=== PATIENT | male | born 1955 | race Caucasian/White ===

== ENCOUNTER 2017-08-23 10:13 | Emergency (ER) | payer BC ==
[~2017-08-23] VITALS: Ht 180.3 cm; Wt 111.0 kg
[~2017-08-23 10:13] MED LIST: ASPI81TA28 PO; CARV25TA2 PO; LISI20TA55 PO; METF-383 PO; PRAV20TA PO
[2017-08-23 10:23] VITALS: Ht 180.3 cm; Wt 111.0 kg
[2017-08-23 10:58] VITALS: O2SAT 94
[2017-08-23 11:00] LABS: HEMATOCRIT 46.3 % (42-52); HEMOGLOBIN 16.6 g/dL (14.0-18.0); MEAN CELL VOLUME 86.1 fL (80-100); MEAN CORPUSCULAR HEMOGLOBIN 30.9 pg (25-34); MEAN CORPUSCULAR HGB CONC 35.9 g/dl (32-36); MEAN PLATELET VOLUME 9.2 fL (7.4-10.4); PLATELET COUNT 201 K/uL (130-400); RED CELL DISTRIBUTION WIDTH SD 40.7 fL (36.4-46.3); WHITE BLOOD COUNT 8.93 K/uL (4.8-10.8)
[2017-08-23 11:14] LABS: PTT PATIENT 25.4 SECONDS (21.0-31.0)
[2017-08-23 11:19] LABS: ALBUMIN 3.7 gm/dl (3.4-5.0); CREATININE 1.33 mg/dl (0.60-1.40); POTASSIUM 3.9 mmol/L (3.5-5.1)
[2017-08-23 11:21] LABS: TOTAL PROTEIN 7.8 gm/dl (6.4-8.2)
--- NOTE | 2017-08-23 11:26 | DIAGNOSTIC IMAGING REPORT ---
CHEST ONE VIEW PORTABLE CLINICAL HISTORY: Atrial fibrillation. COMPARISON STUDY: No previous studies for comparison. FINDINGS: Lung volumes are mildly diminished. No pneumothorax or pleural effusion is noted. There is no consolidation or evidence for pulmonary edema. There is mild to moderate cardiomegaly. IMPRESSION: 1. No acute cardiopulmonary findings. 2. Mild to moderate cardiomegaly. Electronically signed by: Slade Walsh M.D. 08/23/2017 11:24 AM Dictated Date/Time: 08/23/2017 11:23 AM
[2017-08-23 11:28] LABS: CKMB 1.7 ng/ml (0.5-3.6)
[2017-08-23] MEDS ORDERED: AMLO2.5T PO (12:00)
[2017-08-23 12:14] LABS: PHOSPHORUS 2.7 mg/dl (2.5-4.9)
[2017-08-23] MEDS ORDERED: APIXABAN 2.5 MG TAB PO STA (13:13)
--- NOTE | 2017-08-23 13:14 | Pharmacy Progress Note ---
ED Pharmacist Progress Note Date of Service: Aug 23, 2017. I spent 15 minutes with the patient explaining apixaban. Adverse effects, drug interactions, and other pertinent drug information were reviewed with the patient. All of the patient's questions and concerns were address.
[2017-08-23] MEDS ORDERED: APIX1TAB3 PO (13:20)
--- NOTE | 2017-08-23 13:21 | EMERGENCY ROOM VISIT NOTE ---
History Report prepared by Celine: Dmitri Soriano Under the Supervision of: Dr. Darrius Kang M.D. First contact with patient: 10:55 Chief Complaint: ABNORMAL DIAGNOSTIC TESTING Stated Complaint: A-FIB History of Present Illness The patient is a 61 year old white male with a past medical history of diabetes and HTN who presents to the ED with a cc of constant irregular heart rhythm. Patient was seen today for a left knee replacement, and was found to have an irregular heart rhythm on the monitor. He has no known history of irregular heart rhythms. Positive constant fatigue (x2 weeks). Negative: nausea, vomiting , leg swelling, chest pain, or SOB. Source of History: patient Onset: Today Quality: other (irregular heart rhythm) Timing: constant Associated Symptoms: + fatigue (x2 weeks), No chest pain, No SOB, No nausea , No vomiting Note: Negative: leg swelling. Review of Systems See HPI for pertinent positives and negatives. A total of ten systems were reviewed and were otherwise negative. Past Medical & Surgical Medical Problems: (1) Diabetes (2) HTN (hypertension) Family History No pertinent family history stated. Social History Smoking Status: Never Smoker Current/Historical Medications Scheduled Amlodipine (Norvasc), 2.5 MG PO QAM Apixaban (Eliquis), 5 MG PO BID Aspirin (Aspirin Ec), 81 MG PO QAM Carvedilol (Coreg), 1 TAB PO BID Lisinopril/Hctz (Prinzide 20-25MG), 1 TAB PO QAM Metformin Hcl (Glucophage), 850 MG PO BID Pravastatin (Pravachol ), 40 MG PO QAM Allergies Coded Allergies: No Known Allergies (Unverified , 08/23/17) Physical Exam Vital Signs Date Time Temp Pulse Resp B/P (MAP) Pulse Ox O2 Delivery O2 Flow Rate FiO2 08/23/17 14:12 36.7 67 22 155/99 96 08/23/17 14:10 67 22 155/99 96 Room Air 08/23/17 13:30 67 22 08/23/17 13:00 66 28 08/23/17 12:35 66 21 160/100 96 Room Air 08/23/17 10:58 94 Room Air 08/23/17 10:50 70 21 98 Room Air 08/23/17 10:41 70 08/23/17 10:23 36.7 76 18 196/109 94 Room Air Physical Exam GENERAL: Awake, alert, well-appearing, NAD HENT: Normocephalic, atraumatic. EYES: Normal conjunctiva. Sclera non-icteric. NECK: Supple. No nuchal rigidity. FROM. RESPIRATORY: CTAB, no rhonchi, wheezing, crackles CARDIAC: Irregularly irregular rhythm, normal rate, no MRG ABDOMEN: Obese, distended, soft. NTND, BS+ MSK: No chest wall TTP, no LE edema NEURO: GCS 15, CN 2-12 intact, moves all 4s on command SKIN: No rash or jaundice noted. Medical Decision & Procedures ER Provider Diagnostic Interpretation: Radiology results as stated below per my review and radiologist interpretation: CHEST ONE VIEW PORTABLE FINDINGS: Lung volumes are mildly diminished. No pneumothorax or pleural effusion is noted. There is no consolidation or evidence for pulmonary edema. There is mild to moderate cardiomegaly. IMPRESSION: 1. No acute cardiopulmonary findings. 2. Mild to moderate cardiomegaly. Electronically signed by: Slade Walsh M.D. 08/23/2017 11:24 AM Laboratory Results 08/23/17 10:45 08/23/17 10:45 Test 08/23/17 10:45 Red Blood Count 5.38 M/uL (4.7-6.1) Mean Corpuscular Volume 86.1 fL (80-100) Mean Corpuscular Hemoglobin 30.9 pg (25-34) Mean Corpuscular Hemoglobin Concent 35.9 g/dl (32-36) RDW Standard Deviation 40.7 fL (36.4-46.3) RDW Coefficient of Variation 13.0 % (11.5-14.5) Mean Platelet Volume 9.2 fL (7.4-10.4) Prothrombin Time 10.7 SECONDS (9.0-12.0) Prothromb Time International Ratio 1.0 (0.9-1.1) Activated Partial Thromboplast Time 25.4 SECONDS (21.0-31.0) Partial Thromboplastin Ratio 1.0 Anion Gap 9.0 mmol/L (3-11) Est Creatinine Clear Calc Drug Dose 72.9 ml/min Estimated GFR () 65.9 Estimated GFR (Non- 56.9 BUN/Creatinine Ratio 13.0 (10-20) Calcium Level 9.0 mg/dl (8.5-10.1) Phosphorus Level 2.7 mg/dl (2.5-4.9) Magnesium Level 1.8 mg/dl (1.8-2.4) Total Bilirubin 0.8 mg/dl (0.2-1) Aspartate Amino Transf (AST/SGOT) 39 U/L (15-37) Alanine Aminotransferase (ALT/SGPT) 64 U/L (12-78) Alkaline Phosphatase 55 U/L (45-117) Total Creatine Kinase 170 U/L (39-308) Creatine Kinase MB 1.7 ng/ml (0.5-3.6) Creatine Kinase MB Ratio 1.0 (0-3.0) Troponin I < 0.015 ng/ml (0-0.045) Total Protein 7.8 gm/dl (6.4-8.2) Albumin 3.7 gm/dl (3.4-5.0) Globulin 4.1 gm/dl (2.5-4.0) Albumin/Globulin Ratio 0.9 (0.9-2) Beta-Hydroxybutyric Acid 1.41 mg/dL (0.2-2.81) Thyroid Stimulating Hormone (TSH) 1.360 uIu/ml (0.300-4.500) Laboratory results reviewed by me Medications Administered Medications (Trade) Dose Ordered Sig/Roshan Route Start Time Stop Time Status Last Admin Dose Admin Apixaban (Eliquis Tab) 5 mg ONE STAT PO 08/23/17 13:13 08/23/17 13:14 DC 08/23/17 13:59 5 MG ECG Per My Interpretation Indication: other (Irregular heart rhythm) Rate (beats per minute): 63 Rhythm: atrial fibrillation (vs A-flutter) Findings: other (Normal axis. No overt STS changes or TWI. ) ED Course 1121: The patient was evaluated in room C6. A complete history and physical exam was performed. 1330: I reevaluated the patient. Discussed results and discharge instructions: he verbalized understanding and agreement. The patient is ready for discharge. Medical Decision The patient is a 61 year old white male with a past medical history of diabetes and HTN who presents to the ED with a cc of constant irregular heart rhythm. Nursing notes reviewed. Ancillary studies and prior records reviewed. Differential diagnosis: Etiologies such as premature contractions, electrolyte abnormality, cardiac dysrhythmia, thyroid dysfunction, pulmonary embolism, infection, gastrointestinal, as well as others were entertained. Patient was seen and evaluated the bedside. Patient has complained of some mild fatigue and was in preoperative clearance today and had an EKG which showed A. fib. Patient is otherwise rate controlled. Patient denies any chest pains or shortness of breath. Patient had no lower extremity swelling. Patient had blood work completed, TSH, chest x-ray, and EKG. Patient's EKG does show persistent A. fib versus possible a flutter. The patient does take a baby aspirin. Patient does have a [id number] score of 2. Should be anticoagulated. I discussed the patient with the on-call hospitalist who believes that the patient is suitable for outpatient workup. I did discuss the patient with the ER pharmacist recommended Eliquis 5 mg twice daily. I did discuss with watch case polisher in order to help arrange a follow-up appointment with his PCP for outpatient workup. An appointment was arranged. He was also told he will need to discuss his anticoagulation and when to stop it with his orthopedist depending on when his procedure supposed to occur. Patient again is otherwise fairly asymptomatic otherwise than his mild fatigue. The patient' s troponin is negative and does not show ischemic changes. This is more most likely related to his A. fib. Patient was deemed suitable for outpatient follow -up and treatment at this time. Patient was given strict follow-up, discharge, and return precautions. All questions were answered. Patient was deemed suitable for outpatient follow-up at this time. Patient agreed with the plan of care and was safely discharged home. Medication Reconcilliation Current Medication List: was personally reviewed by me Blood Pressure Screening Patient's blood pressure: Elevated blood pressure Blood pressure disposition: Referred to PCP Consults Time Called: 1237 Consulting Physician: Kate Johnson DO - [facility] [place], [place] Hospitalist Returned Call: [phone] Discussed the patient's case. Kate Johnson DO feels that the patient would be a good candidate for outpatient treatment. The patient's surgeon can decide on whether to continue with surgery or not. Impression Primary Impression: A-fib Additional Impression: Fatigue Scribe Attestation The scribe's documentation has been prepared under my direction and personally reviewed by me in its entirety. I confirm that the note above accurately reflects all work, treatment, procedures, and medical decision making performed by me. Departure Information Dispostion Home / Self-Care Prescriptions Apixaban (ELIQUIS) 5 Mg Tab 5 MG PO BID for 30 Days, #60 TAB Prov: Darrius Kang M.D. 08/23/17 Referrals Saray Leon DO (PCP) Patient Instructions Atrial Fibrillation Dc, My [facility] Additional Instructions Please return to the emergency department if you have worsening or recurrent symptoms not amenable to at-home treatment. Please call for a follow-up appointment with her primary care physician. Please take your medications as prescribed. If you have other concerns and/or complaints please feel free to also call your primary care physician's office or return the ED for further evaluation, management, and treatment. You were found to have an elevated blood pressure today (>120 sytolic or >90 diastolic). Per medicare guidelines, you need to follow up with this blood pressure screening with your Primary Care Physician (PCP). For a new PCP call [phone]. Please keep your follow-up appointment with your primary care physician. Continue her aspirin for now but discussed whether or not you should continue to take it with your primary care provider and/or the orthopedist. Please make sure to talk to her orthopedist about when to start the blood thinning medications prior to your procedure. Take your medications as prescribed. You have been examined and treated today on an emergency basis only. This is not a substitute for, or an effort to provide, complete comprehensive medical care. It is impossible to recognize and treat all injuries or illnesses in a single emergency department visit. It is therefore important that you follow up closely with [facility], your PCP, and/or your specialist(s). Call as soon as possible for an appointment. Thank you for your time and consideration. I look forward to speaking with you again soon. Please don't hesitate to call us if you have any questions. Problem Qualifiers Primary Impression: A-fib Atrial fibrillation type: unspecified Qualified Codes: I48.91 - Unspecified atrial fibrillation Additional Impression: Fatigue Fatigue type: unspecified Qualified Codes: R53.83 - Other fatigue
[2017-08-23 14:12] VITALS: BP 155/99; PULSE 67; TEMP 36.7; O2SAT 96
== END 2017-08-23 14:13 | disposition home or self-care (01) ==
LOC: C.EDB 10:16 → C.EDC 14:13
DX: I48.91 Unspecified atrial fibrillation (principal); R53.83 Other fatigue; E11.9 Type 2 diabetes mellitus without complications; I10 Essential (primary) hypertension; Z79.899 Other long term (current) drug therapy; Z79.82 Long term (current) use of aspirin; Z79.84 Long term (current) use of oral hypoglycemic drugs; Z79.01 Long term (current) use of anticoagulants

== ENCOUNTER 2017-09-16 06:21 | Inpatient (IN) | payer BC ==
[2017-08-23 09:26] VITALS: BMI 34.0
--- NOTE | 2017-08-23 09:50 | PAT Medication Instructions ---
Service Date Aug 23, 2017. Current Home Medication List Aspirin (Aspirin Ec), 81 MG PO QAM Carvedilol (Coreg), 1 TAB PO BID Lisinopril/Hctz (Prinzide 20-25MG), 1 TAB PO QAM Metformin Hcl (Glucophage), 850 MG PO BID Pravastatin (Pravachol ), 40 MG PO QAM Medication Instructions For Your Scheduled Surgery - Hold the following medications the morning of surgery: Lisinopril/Hctz (Prinzide 20-25MG), 1 TAB PO QAM Metformin Hcl (Glucophage), 850 MG PO BID - Take the following medications the morning of surgery with a sip of water: Aspirin (Aspirin Ec), 81 MG PO QAM Carvedilol (Coreg), 1 TAB PO BID Pravastatin (Pravachol ), 40 MG PO QAM - Take the following medications as scheduled the night before surgery: Carvedilol (Coreg), 1 TAB PO BID Metformin Hcl (Glucophage), 850 MG PO BID If you have any questions please call us at [phone] or [phone] or [phone]
[2017-08-23 11:04] LABS: BASO % 0.3 %; BASO ABS # 0.03 K/uL (0-0.2); EOS % 2.6 %; EOS ABS # 0.25 K/uL (0-0.5); HEMATOCRIT 44.9 % (42-52); HEMOGLOBIN 15.7 g/dL (14.0-18.0); IG# 0.08 K/uL (0.00-0.02); LYMPH % 20.4 %; LYMPH ABS # 1.93 K/uL (1.2-3.4); MEAN CELL VOLUME 86.8 fL (80-100); MEAN CORPUSCULAR HEMOGLOBIN 30.4 pg (25-34); MEAN PLATELET VOLUME 9.2 fL (7.4-10.4); MONO % 5.6 %; MONO ABS # 0.53 K/uL (0.11-0.59); NEUT % 70.3 %; NEUT ABS # 6.62 K/uL (1.4-6.5); PLATELET COUNT 213 K/uL (130-400); RED CELL DISTRIBUTION WIDTH CV 13.1 % (11.5-14.5); RED CELL DISTRIBUTION WIDTH SD 41.8 fL (36.4-46.3); WHITE BLOOD COUNT 9.44 K/uL (4.8-10.8)
[2017-08-23 11:21] LABS: PTT PATIENT 24.8 SECONDS (21.0-31.0)
[2017-08-23 12:37] LABS: HEMOGLOBIN A1C 8.6 % (4.5-5.6)
--- NOTE | 2017-09-10 09:20 | HISTORY & PHYSICAL EXAMINATION ---
DATE OF ADMISSION: 09/16/2017 CHIEF COMPLAINT: Left knee pain. HISTORY OF PRESENT ILLNESS: This is a 61-year-old gentleman who presents for surgical treatment of his left knee. He has a several year history of increasing left knee pain and discomfort. He does have a history of knee arthroscopy on his knee back in 2009 done by myself. He has had about 2 or 3 other operations on this previous to that. It continues to bother with progressive pain and discomfort in his knee. It increases with weightbearing. Pain is more medial than lateral. The injections that he has had gave him some temporary relief, but become less successful over time. He would like to have his knee fixed. PAST MEDICAL HISTORY: Past medical history of 1. Diabetes x13 years. 2. Elevated cholesterol. 3. Hypertension. 4. Atrial fibrillation. 5. Mild obesity, BMI 34. PAST SURGICAL HISTORY: Previous surgeries include: 1. Multiple left knee operations. 2. Right knee arthroscopy. ALLERGIES: None. CURRENT MEDICINES: 1. Pravastatin 40 mg a day. 2. Carvedilol 25 mg twice a day. 3. Metformin 850 mg twice a day. 4. Lisinopril/hydrochlorothiazide 20/25 once a day. 5. Aspirin 81 mg a day. SOCIAL HISTORY: A 61-year-old male. He drinks 2 drinks per day. Does not smoke. He is self-employed and owns some rental houses. He is . FAMILY HISTORY: Significant for diabetes. REVIEW OF SYSTEMS: Significant for diabetes. Denies any chest pain or shortness of breath. No history of DVT or PE. PHYSICAL EXAMINATION: GENERAL: Physical examination reveals a healthy, pleasant middle-aged male. He looks to be in pretty good health. HEENT EXAMINATION: Benign. NECK: Supple. No lymphadenopathy. LUNGS: Clear to auscultation. HEART: Heart has an irregularly irregular rhythm. No obvious murmurs. ABDOMEN: Soft, nontender, nondistended. EXTREMITY EXAMINATION: Grossly neurovascularly intact except as follows: Examination of the left knee reveals the patient ambulates independently. He has got varus alignment to his knee. Well-healed arthroscopic portal sites. Small knee effusion. He has got bony hypertrophy medially. Range of motion is 5-125. No instability. X-RAYS: X-rays of the left knee reviewed. Shows advanced left knee DJD. He has got complete loss of his medial joint space on the 40 degree flexion films. A little bit of tibial femoral subluxation. ASSESSMENT: This is a 61-year-old male diabetic with a history of multiple left knee scopes in the past with advanced left knee degenerative joint disease. He has failed conservative treatment and would like to have his left knee replaced. PLAN: We will take him to the operating room and do a left total knee replacement. The risks and benefits of this procedure were explained to the patient including but not limited to DVT, PE, , infection, neurological injury, vascular injury, bleeding problem, pain, limited range of motion, stiffness, failure to relieve symptoms, incomplete relief of symptoms, need for further surgery in future, fracture, leg length inequality, nerve palsy, etc. The patient understands and desires to proceed. Informed consent was obtained. He is planning to be discharged to home using [facility] home health program. We did talk to him about holding his metformin the morning of surgery and the lisinopril the morning of surgery. He should take his carvedilol. CHARLES
[~2017-09-16] VITALS: Ht 180.3 cm; Wt 111.0 kg
[2017-09-16] VITALS (11 sets, daily range): BP systolic 119–182; BP diastolic 72–139; PULSE 65–80; TEMP 36.4–37.3; O2SAT 91–97; Ht 180.3 cm; Wt 111.0 kg
[~2017-09-16 06:21] MED LIST changes: +ACETAMINOPHEN 500 MG TAB PO SCH; +AMLO2.5T PO; +APIX1TAB3 PO; +BUPIVACAINE LIPOSOME 266 MG, BUPIVACAINE/EPINEPHRINE INJ 50 ML, SODIUM CHLORIDE 0.9% PF... INFIL SCH; +CEFAZOLIN 2000MG IV PUSH 15 ML IV SCH; +FAMOTIDINE 20 MG TAB PO SCH; +GABAPENTIN 600 MG PO SCH; +LACTATED RINGER'S 1000ML 1,000 ML IV SCH; +LACTATED RINGER'S 1000ML 500 ML IV SCH; +LACTATED RINGER'S 1000ML IV SCH; +METOCLOPRAMIDE HCL 10 MG TAB PO SCH; +SCOPOLAMINE 1.5 MG TDSY TD SCH; +TRANEXAMIC ACID INJ 1,000 MG x 1 Bag Intra-Op IV SCH
--- NOTE | 2017-09-16 06:49 | History & Physical Bridge Note ---
H&P Re-Evaluation Bridge Note: I have examined the patient, reviewed the History & Physical and in the interval since the performance of the History & Physical I have noted the following changes of clinical significance: No changes noted
[2017-09-16] MEDS ORDERED: APIX1TAB3 PO (06:51)
[2017-09-16] MEDS ORDERED: BUPIVACAINE 0.5 % 5 MG/1 ML PF 10ML VIAL ONE (07:32)
[2017-09-16] MEDS ORDERED: ROPIVACAINE 0.5% 5 MG/ML 30 ML VIAL ONE (07:32)
[2017-09-16] MEDS ORDERED: MIDAZOLAM HCL 1 MG/ML 2ML VIAL ONE ×2 (07:49→08:46)
[2017-09-16] MEDS ORDERED: BUPIVACAINE LIPOSOME 1/3% 266 MG/20 ML VIAL ONE (08:55)
[2017-09-16] MEDS ORDERED: SODIUM CHLORIDE 0.9% PF 50 ML VIAL ONE (08:55)
[2017-09-16] MEDS ORDERED: BACITRACIN 50000 UNIT VIAL ONE (08:55)
[2017-09-16] MEDS ORDERED: BUPIVACAINE 0.25% 30 ML VIAL ONE (08:56)
[2017-09-16] MEDS ORDERED: EpINEphrine INJ 1MG/ML AMP 1 MG/ML AMP ONE (08:56)
[2017-09-16] MEDS ORDERED: PHENYLEPHRINE 100MCG/ML 5ML SYR ONE (09:37)
[2017-09-16] MEDS ORDERED: ONDANSETRON INJ 2 MG/ML 2 ML VIAL ONE (09:37)
[2017-09-16] MEDS ORDERED: DEXAMETHASONE SOD INJ 4 MG/ML VIAL ONE (09:37)
[2017-09-16] MEDS ORDERED: PROPOFOL IV EMULSION 10 MG/ML 20 ML VIAL ONE (09:37)
[2017-09-16] MEDS ORDERED: EpHEDrine SULFATE INJ 50 MG/ML AMP IV PRN (09:45)
[2017-09-16] MEDS ORDERED: ATROPINE SULFATE 0.1 MG/ML 5ML SYR IV PRN (09:45)
[2017-09-16] MEDS ORDERED: TAMSULOSIN HCL 0.4 MG CAP PO PRN (11:15)
[2017-09-16] MEDS ORDERED: GLUCOSE 10 TABS/TUBE PO PRN (11:15)
[2017-09-16] MEDS ORDERED: SILVER SULFADIAZINE 1% CR 50 GM JAR EXT PRN (11:15)
[2017-09-16] MEDS ORDERED: ONDANSETRON INJ 2 MG/ML 2 ML VIAL IV PRN (11:15)
[2017-09-16] MEDS ORDERED: DiphenhydrAMINE HCL 50 MG/ML VIAL IV PRN (11:15)
[2017-09-16] MEDS ORDERED: MAGNESIUM HYDROXIDE SUSP 30 ML UDC PO PRN (11:15)
[2017-09-16] MEDS ORDERED: GLUCAGON FOR INJ 1 MG VIAL SQ PRN (11:15)
[2017-09-16] MEDS ORDERED: ZOLPIDEM TARTRATE 5 MG TAB PO PRN (11:15)
[2017-09-16] MEDS ORDERED: ALUMINUM/MAGNESIUM/SIMETH (MAALOX MAX) 30 ML UDC PO PRN (11:15)
[2017-09-16] MEDS ORDERED: CARBOHYDRATES FOR HYPOGLYCEMIA PO PRN (11:15)
[2017-09-16] MEDS ORDERED: METOCLOPRAMIDE HCL INJ 5 MG/ML 2 ML VIAL IV PRN (11:15)
[2017-09-16] MEDS ORDERED: DEXTROSE 50% 50 ML SYR IV PRN (11:15)
[2017-09-16] MEDS ORDERED: GLUCOSE 40% GEL 15 GM TUBE PO PRN (11:15)
[2017-09-16] MEDS ORDERED: BISACODYL 10 MG SUPP PR PRN (11:15)
[2017-09-16] MEDS ORDERED: HYDROmorphone INJ 2 MG/ML SYR/VIAL IV PRN (11:15)
--- NOTE | 2017-09-16 11:15 | [facility] Post Operative Brief Note ---
Immediate Operative Summary Operative Date September 16, 2017. Pre-Operative Diagnosis Left Knee Advanced Degenerative Joint Disease Post-Operative Diagnosis Left Knee Advanced Degenerative Joint Disease Procedure(s) Performed Left Total Knee Arthroplasty Surgeon Dr. Johnson Erecting Engineer Surgeon(s) ASYA Chahal Estimated Blood Loss 50 ml Findings Consistent with Post-Op Diagnosis Fluids (cc crystalloids) 1300 cc Specimens A. Left Knee Bone and Tissue Drains None Anesthesia Type MAC Spinal Regional Complication(s) none Disposition Accompanied Pt To Recover: no Disposition: Recovery Room / PACU
--- NOTE | 2017-09-16 11:51 | DIAGNOSTIC IMAGING REPORT ---
TWO VIEWS LEFT KNEE CLINICAL HISTORY: Postoperative examination. FINDINGS: AP and crosstable lateral portable views of the left knee are obtained. A left knee arthroplasty is in near anatomic alignment. There has been undersurface remodeling of the patella. No acute fracture is seen. There are expected postoperative changes around the knee including skin clips, soft tissue edema, and subcutaneous gas. A calcified fabella is incidentally noted. IMPRESSION: Expected postoperative changes status post left knee arthroplasty. No acute fracture is seen. Electronically signed by: Bon Laureano M.D. 09/16/2017 11:49 AM Dictated Date/Time: 09/16/2017 11:49 AM
--- NOTE | 2017-09-16 12:13 | Anesthesiology Progress Note ---
Anesthesia Post Op Note Date & Time September 16, 2017 at 12:13 Vital Signs Pain Intensity: 0 Vital Signs Past 12 Hours Date Time Temp Pulse Resp B/P (MAP) Pulse Ox O2 Delivery O2 Flow Rate FiO2 09/16/17 12:00 70 23 116/81 95 Nasal Cannula 2 09/16/17 11:50 36.2 58 14 101/76 95 Nasal Cannula 2 09/16/17 11:40 68 25 106/69 96 Nasal Cannula 2 09/16/17 11:30 58 20 111/62 96 Nasal Cannula 2 09/16/17 11:21 36.3 69 16 112/76 99 Oxymask 10 09/16/17 07:28 147/106 09/16/17 07:07 36.5 75 20 96 Room Air Notes Mental Status: alert / awake / arousable, participated in evaluation Pt Amnestic to Procedure: Yes Nausea / Vomiting: adequately controlled Pain: adequately controlled Airway Patency, RR, SpO2: stable & adequate BP & HR: stable & adequate Hydration State: stable & adequate Neuraxial Anesthesia: was administered, sensory block is resolving Anesthetic Complications: no major complications apparent
[2017-09-16] MEDS: SODIUM CHLORIDE 0.9% 1000ML 1,000 ML IV SCH ×2 (13:10→19:16)
--- NOTE | 2017-09-16 14:12 | OPERATIVE REPORT ---
DATE OF OPERATION: 09/16/2017 SURGEON: Nam Johnson M.D. DIRECTOR TRANSLATION: ASYA Acosta PREOPERATIVE DIAGNOSIS: Left knee degenerative joint disease. POSTOPERATIVE DIAGNOSIS: Left knee degenerative joint disease. PROCEDURE PERFORMED: Left cemented posterior stabilized total knee arthroplasty. COMPLICATIONS: None. ESTIMATED BLOOD LOSS: 50 mL FLUID REPLACEMENT: 1300 mL crystalloid fluid replacement. TOURNIQUET TIME: 72 minutes at 300 mmHg. ANESTHESIA: Spinal with adductor canal block. DRAINS: None. SPECIMENS: Left knee sent for pathology. OPERATIVE INDICATIONS: The patient is a 61-year-old gentleman who has had a fairly long history of bilateral knee pain and discomfort, left side quite a bit worse than the right. He has had a history of multiple operations on this knee, which provided him temporary relief only. Has not had anything done recently. He has failed conservative treatment. X-rays showed advanced left knee DJD. He elected to proceed with operative treatment. OPERATIVE FINDINGS: Operative findings were advanced left knee DJD with grade 4 [id number] disease in the medial femoral condyle and medial tibial plateau. He has certainly much less severe disease of the lateral compartment, but did have some areas where he was Grade 2 to grade 3. The patellofemoral joint showed diffuse grade 2 and 3 changes. He had a moderate-sized joint effusion. He did have about a 10-15 degree flexion contracture. OPERATIVE IMPLANTS: Operative implants consisted of: 1. Biomet Vanguard size 67.5 left posterior stabilized femoral component. 2. Biomet size 71 tibial tray. 3. A 10 mm posterior stabilized polyethylene insert. 4. A 31 x 8 all poly patella. OPERATIVE PROCEDURE: The patient taken to the operating room, identified and placed on operative table in supine position. All contact areas were appropriately padded. IV antibiotics provided by anesthesia team. A spinal anesthetic and adductor canal block had been provided in the holding area. Koo catheter was placed in sterile fashion. Left thigh tourniquet was then placed and left lower extremity was then prepped and draped in usual sterile fashion. His left leg was elevated, exsanguinated with Esmarch, and tourniquet was placed at 300 mmHg. An anterior approach to the left knee was then performed through a longitudinal incision centered over the patella. Sharp dissection was carried out through the subcutaneous tissues down to the level of the extensor mechanism. A medial parapatellar arthrotomy incision was made. Some subperiosteal dissection was carried out medially. The fat pad resected from beneath the patellar tendon. Lateral patellofemoral ligament was released. Patella was everted and the knee was flexed. The osteophytes were taken off distal femur. The ACL and PCL were then released from the distal femur and the tibia subluxated anteriorly. The external tibial alignment jig was then placed in the anterior face of the tibia and adjusted 16 mm medially. Proximal tibial cut was made to remove about a millimeter of bone from the very most deficient aspect of the posteromedial tibial plateau. Some osteophytes were taken off medial and posteromedially. Tibia sized to a size 71. Attention was then drawn to the femur. The distal femur was entered with a sharp drill bit. Intramedullary canal was suctioned. A left 6-degree valgus cutting guide was placed. Distal femoral cutting block was pinned in place. Distal femoral cut was made to take an additional 3 mm of bone off the distal femur. The femur was then sized to a size 67.5. We did downsize this just slightly. The AP cutting block was pinned parallel to the epicondylar axis, which was 3 degrees of external rotation. The anterior cut, anterior chamfer, posterior cut, posterior chamfer cuts were made. Box cutting guide was placed and adjusted slightly lateral and the box cut was made. The knee was flexed. The remnants of the medial and lateral menisci were excised. The osteophytes were taken off the posterior aspect of the femur. Trial femoral component was placed. Tibial tray was pinned in maximum external rotation and drill and stem punch were used to create defect in proximal tibia for the tibial tray. The knee was then trialed. It was still a little bit tight in both flexion and extension, so I removed the tibial tray. I replaced the external alignment jig on the anterior face of the tibia and adjusted and resected about 2-3 mm of additional bone. I then redrilled and punched the tibia. We then trialed the knee and the 10 mm insert fit most appropriately. I really wanted to make sure I did not leave him too tight as he had a flexion contracture preoperatively. Attention was then drawn to the patella. The patella was cleaned of all soft tissues. Patella thickness measured 25 mm in thickness and cut down to 14. It was sized to a size 31 patella. Lug holes were drilled for the 31 patella. Lateral osteophyte was removed. Patella button was placed. Knee was taken through range of motion and the patella tracked nicely with no thumbs test. Attention was then drawn toward placement of the permanent components. All trial components were removed. A bone plug was placed in the distal femur to limit blood loss. A double batch of Palacos G cement was mixed. A left size 67.5 posterior stabilized femoral component, size 71 tibial tray, 10 mm posterior stabilized polyethylene insert, and a 31 x 8 all poly patella then cemented in place. Knee was brought out into full extension until cement hardened. A final cement check was then performed. Pericapsular tissues were injected, a total of 100 mL of a combination of 20 mL of Exparel, 30 mL normal saline, 50 mL of 0.25% Marcaine with epinephrine. The patient did receive 1 gram of tranexamic acid. The tourniquet was then let down for final tourniquet time of 72 minutes. Hemostasis was assured with use of electrocautery. The wound was once again irrigated. The extensor mechanism was then closed with combination of #1 PDS suture and #1 Vicryl suture in a [id number] fashion. Extensor mechanism was checked and found to be intact. Subcutaneous tissues were then closed #2 Dexon suture in a buried interrupted fashion. Skin was closed with skin anna. Leg was then cleaned, dried and a sterile dressing of Xeroform, 4 x 4's, sterile cast padding and Ty bandage were applied. The patient then transferred to the recovery room in stable condition. The patient tolerated the procedure well with no complication. All needle and sponge counts were correct at the end of the operation. I attest to the content of the Intraoperative Record and any orders documented therein. Any exceptions are noted below. MTDD
[2017-09-16] MEDS: AMLODIPINE BESYLATE 5 MG TAB PO SCH (14:20)
[2017-09-16] MEDS: LISINOPRIL/HCTZ 20/25MG TAB PO SCH (14:21)
[2017-09-16] MEDS: ACETAMINOPHEN 500 MG TAB PO SCH ×2 (14:22→21:38)
[2017-09-16] MEDS: KETOROLAC TROMETHAMINE 15 MG/ML VIAL IV. SCH ×2 (14:22→20:32)
--- NOTE | 2017-09-16 14:35 | PROGRESS NOTE ---
DATE: 09/16/2017 SUBJECTIVE: A 61-year-old gentleman postop from a left knee replacement. He is doing pretty well. Not having any pain yet. Just starting to get the function back in his leg. No chest pain or shortness of breath. Not feeling dizzy or lightheaded. OBJECTIVE: VITAL SIGNS: Temperature is 36.3. Vital signs stable. He has been hypertensive since being up on the floor. GENERAL: He is a healthy, pleasant, middle-aged male. He is sitting up in bed and looks quite comfortable. He is talking to his family. LUNGS: Clear to auscultation. HEART: Has an irregularly irregular rhythm, but a normal rate. ABDOMEN: Soft, nontender, nondistended. EXTREMITIES: Grossly neurovascularly intact except as follows: Examination of the left lower extremity reveals the dressing to be clean, dry and intact. Leg is well aligned. He is just starting to move his toes a little bit. Brisk refill. X-RAYS: X-rays of left knee from recovery room reviewed. Shows cemented posterior stabilized total knee arthroplasty. Components looked to be in good position. No signs of problems. ASSESSMENT: A 61-year-old male postop from a left knee replacement, doing pretty well. He is not really having any pain yet, but the spinal has worn off yet. His nerve function is just returning. He has been hypertensive and will restart his blood pressure medicine. PLAN: 1. DVT prophylaxis include thigh-high TEDs, SCDs and we will start him back on his Eliquis at a prophylactic dose 24 hours postop and then increase to therapeutic dose probably 2-3 days postop. 2. PT/OT. Weight bear as tolerated. Left total knee protocol. 3. Pain control, doing well with current pain regimen. 4. IV antibiotics x24 hours. 5. Hypertension. We are going to start him back on his blood pressure medicine. 6. Disposition: He will be discharged to home likely with some home health once adequately recovered.
[2017-09-16] MEDS: CHECK SCOPOLAMINE PATCH PLACEMENT SCH ×2 (16:06→23:46)
[2017-09-16] MEDS: INSULIN HUMAN REGULAR SC SCH ×2 (17:57→21:36)
[2017-09-16] MEDS ORDERED: TRANEXAMIC ACID INJ 1,000 MG in SODIUM CHLORIDE 0.9% 100ML 100 ML IV SCH (18:00)
[2017-09-16] MEDS: FERROUS GLUCONATE 324 MG TAB PO SCH (18:03)
[2017-09-16] MEDS: CEFAZOLIN IV 2,000 MG in SYRINGE 0 ML IV SCH (18:06)
[2017-09-16] MEDS: TAPENTADOL ER 50 MG TABCR PO SCH (20:32)
[2017-09-16] MEDS: SENNA 8.6 MG TAB PO SCH (20:33)
[2017-09-16] MEDS: CARVEDILOL 25 MG TAB PO SCH (20:33)
[2017-09-16] MEDS: DOCUSATE SODIUM 100 MG CAP PO SCH (20:33)
[2017-09-16] MEDS ORDERED: NURSING VERBAL MED ORDER ONE (20:45)
[2017-09-16] MEDS: PRAVASTATIN SOD 20 MG TAB PO SCH (21:40)
[2017-09-17] MEDS: CEFAZOLIN IV 2,000 MG in SYRINGE 0 ML IV SCH (02:02)
[2017-09-17] MEDS: SODIUM CHLORIDE 0.9% 1000ML 1,000 ML IV SCH ×2 (02:02→09:44)
[2017-09-17] MEDS: KETOROLAC TROMETHAMINE 15 MG/ML VIAL IV. SCH ×2 (02:02→08:23)
[2017-09-17 03:44] VITALS: BP 111/63; PULSE 62; TEMP 36.6; O2SAT 91
[2017-09-17] MEDS: ACETAMINOPHEN 500 MG TAB PO SCH ×3 (05:51→21:19)
[2017-09-17 06:29] LABS: HEMATOCRIT 38.9 % (42-52); HEMOGLOBIN 13.6 g/dL (14.0-18.0); MEAN CELL VOLUME 86.4 fL (80-100); MEAN CORPUSCULAR HEMOGLOBIN 30.2 pg (25-34); MEAN PLATELET VOLUME 8.8 fL (7.4-10.4); PLATELET COUNT 211 K/uL (130-400); RED CELL DISTRIBUTION WIDTH CV 12.8 % (11.5-14.5); RED CELL DISTRIBUTION WIDTH SD 40.3 fL (36.4-46.3); WHITE BLOOD COUNT 14.99 K/uL (4.8-10.8)
[2017-09-17 07:04] LABS: CALCIUM 7.7 mg/dl (8.5-10.1); CREATININE 1.28 mg/dl (0.60-1.40); POTASSIUM 3.6 mmol/L (3.5-5.1)
[2017-09-17 07:14] VITALS: BP 135/79; PULSE 62; TEMP 36.7; O2SAT 90
[2017-09-17] MEDS: CHECK SCOPOLAMINE PATCH PLACEMENT SCH ×3 (08:00→23:36)
--- NOTE | 2017-09-17 08:00 | PROGRESS NOTE ---
DATE: 09/17/2017 SUBJECTIVE: A 61-year-old gentleman postop day 1 from a left knee replacement. He is doing well. Minimal pain. No chest pain or shortness of breath. Not feeling dizzy or lightheaded. OBJECTIVE: VITAL SIGNS: Temperature 36.7. Vital signs stable. GENERAL: Physical exam shows a healthy, pleasant, middle-aged male. He is sitting up in bed, looks completely comfortable. EXTREMITIES: Examination of the left leg reveals the dressing to be clean, dry and intact. The leg is well aligned. He can dorsiflex and plantarflex his foot appropriately. He is neurologically intact. LABORATORY DATA: Hemoglobin 13.6, hematocrit 38.9. White cell count 14.99. Electrolytes are stable. Blood glucose 135. ASSESSMENT: A 61-year-old gentleman postop day 1 from left knee replacement. He is doing pretty well. He has history of well-controlled atrial fibrillation and currently asymptomatic. Blood glucoses have been under reasonable control. PLAN: 1. DVT prophylaxis including thigh high TEDs, SCDs, and we will start him back on his Eliquis at a prophylactic dose 24 hours postop and increase to therapeutic dose 48 hours postop. 2. PT/OT. Weight bear as tolerated. Left total knee protocol. 3. Pain control. Doing reasonably well with current pain regimen. 4. Disposition. Plan to discharge to home likely with some home health once adequately recovered.
[2017-09-17] MEDS: LISINOPRIL/HCTZ 20/25MG TAB PO SCH (08:25)
[2017-09-17] MEDS: DOCUSATE SODIUM 100 MG CAP PO SCH ×2 (08:25→21:18)
[2017-09-17] MEDS: CARVEDILOL 25 MG TAB PO SCH ×2 (08:25→21:18)
[2017-09-17] MEDS: AMLODIPINE BESYLATE 5 MG TAB PO SCH (08:25)
[2017-09-17] MEDS: INSULIN HUMAN REGULAR SC SCH ×4 (08:31→21:24)
[2017-09-17] MEDS: METFORMIN HCL 850 MG TAB PO SCH ×2 (08:32→17:29)
[2017-09-17] MEDS: TAPENTADOL ER 50 MG TABCR PO SCH ×2 (08:32→21:24)
[2017-09-17] MEDS ORDERED: PRAVASTATIN SOD 20 MG TAB PO SCH (09:00)
[2017-09-17] MEDS: FERROUS GLUCONATE 324 MG TAB PO SCH ×3 (09:43→17:29)
[2017-09-17] MEDS: MULTIVITAMIN TAB PO SCH (09:44)
[2017-09-17] MEDS: PANTOprazole SOD 40 MG TAB PO SCH (09:44)
[2017-09-17 11:00] VITALS: BP 133/83; PULSE 66; TEMP 36.7; O2SAT 95
[2017-09-17] MEDS: APIXABAN 2.5 MG TAB PO SCH ×2 (12:47→21:18)
[2017-09-17 15:08] VITALS: BP 141/82; PULSE 66; TEMP 36.7; O2SAT 93
[2017-09-17] MEDS: OXYCODONE HCL IR 5 MG TAB (IMMEDIATE RELEASE) PO PRN ×2 (19:23→23:35)
[2017-09-17] MEDS: PRAVASTATIN SOD 20 MG TAB PO SCH (21:18)
[2017-09-17] MEDS: SENNA 8.6 MG TAB PO SCH (21:18)
[2017-09-17 23:05] VITALS: BP 150/87; PULSE 75; TEMP 37.4; O2SAT 94
[2017-09-17] MEDS ORDERED: NURSING VERBAL MED ORDER ONE (23:45)
[2017-09-18] MEDS: OXYCODONE HCL IR 5 MG TAB (IMMEDIATE RELEASE) PO PRN ×2 (05:37→12:23)
[2017-09-18] MEDS: ACETAMINOPHEN 500 MG TAB PO SCH (05:37)
[2017-09-18 06:30] VITALS: BP 163/84; PULSE 90; TEMP 37.4; O2SAT 92
[2017-09-18] MEDS ORDERED: ACET-24 PO (07:48)
[2017-09-18] MEDS ORDERED: RXC5 PO (07:48)
--- NOTE | 2017-09-18 07:50 | Discharge Instructions ---
Discharge Instructions Date of Service September 18, 2017. Admission Reason for Admission: Left Knee Degenerative Joint Disease Discharge Discharge Diagnosis / Problem: Left Knee REplacement Discharge Goals Goal(s): Decrease discomfort, Improve function, Increase independence, Improve disease control, Therapeutic intervention Activity Recommendations Activity Limitations: per Instructions/Follow-up section Weightbearing Status: Left weightbearing . Instructions / Follow-Up Instructions / Follow-Up ACTIVITY RECOMMENDATIONS: Physical Therapy: * You will go to physical therapy three times each week for four to six weeks after your surgery in order to regain your knee range of motion and to retrain your knee to work properly. * It is just as important to make sure you are getting your knee perfectly straight as it is to regain your knee bend. * Taking a pain pill an hour before therapy can help you have a more productive and comfortable therapy session. Home Exercise: * You were shown a series of exercises (heel props, heel slides, etc.) in the hospital. Do these exercises three to four times each day including the exercises you were shown in physical therapy. Walking: * Get up and walk several times each day. For the first four weeks, try not to stand or walk for more than one hour at a time. If you do stand or walk for more than one hour, you will not hurt anything, but your knee and leg will likely swell. * As you feel comfortable, you may change from the walker or crutches to a cane and then to independent walking. MEDICATIONS: New Medicine: * You will likely be taking one or more of these medications: 1. Oxycodone - A quick and shorter-acting pain medication. Take one to two tablets every four to six hours to lessen your pain. 2. Eliquis - Thins your blood to lessen the chance of forming a blood clot. * The most common side effects of pain medicine and iron are nausea and constipation. If nausea or constipation is too much of a problem or if you have any questions about your new medicines or doses, call [facility] at [phone]. We will try to help you manage these issues. VERY IMPORTANT TO READ AND REVIEW" Pain: * The immediate post-operative period after knee replacement surgery is often quite painful. * You are given a prescription for pain medicine. You should take it, as directed, when you need it, especially before physical therapy and before going to bed. Pain that interferes with sleep is very common and can last several months. * You will likely need pain medicine for the first four to six weeks. It will not stop all of the pain. The pain will lessen and as you feel better, you may change to milder pain medicine such as Tylenol. * The most common side effects of pain medicine are nausea and constipation, so don't take more than you need. SPECIAL CARE INSTRUCTIONS: TEDs/Elastic Stockings: * The white elastic stockings help limit swelling and prevent blood clots from forming in your legs. The more you wear them, the more they work. * Wear them for six weeks after knee replacement surgery and four weeks after partial knee replacement. Prevention of Infection: * Take antibiotics one hour before any dental cleaning, dental work, urological procedure, gastrointestinal procedure or any invasive surgery in order to prevent your new joint from getting infected. * You may get the antibiotics from the doctor performing the procedure or you may call our office at before and we will call in a prescription to the pharmacy of your choice. Things to Watch For: * Drainage from the incision site that occurs more than one week after your surgery. * Severely increased knee/leg pain or swelling. * Increased redness at the incision site. * Fever above 102 degrees Fahrenheit. * Unusual chest pain or shortness of breath. * Unusual pain or burning with urination. Call [facility] at with any of the above problems or if you have any questions about your medicines or recovery. FOLLOW UP VISIT: Make an appointment to see your doctor for approximately two weeks after surgery for a progress check and staple removal by calling the office at . Current Hospital Diet Patient's current hospital diet: Diabetes Type 2 Diet Discharge Diet Recommended Diet: Diabetes Type 2 Diet Procedures Procedures Performed: Left Total Knee Arthroplasty Pending Studies Studies pending at discharge: no Laboratory Results Hemoglobin A1c Test 08/23/17 09:58 Range/Units Estimated Average Glucose 200 mg/dl Hemoglobin A1c 8.6 H 4.5-5.6 % Medical Emergencies . Who to Call and When: Medical Emergencies: If at any time you feel your situation is an emergency, please call 911 immediately. . Non-Emergent Contact Non-Emergency issues call your: Surgeon . "Provider Documentation" section prepared by Nam Johnson. .
[2017-09-18] MEDS: INSULIN HUMAN REGULAR SC SCH ×2 (08:00→12:33)
[2017-09-18] MEDS: METFORMIN HCL 850 MG TAB PO SCH (08:02)
[2017-09-18] MEDS: FERROUS GLUCONATE 324 MG TAB PO SCH ×2 (08:02→12:34)
[2017-09-18] MEDS: DOCUSATE SODIUM 100 MG CAP PO SCH (08:02)
[2017-09-18] MEDS: MULTIVITAMIN TAB PO SCH (08:03)
[2017-09-18] MEDS: PANTOprazole SOD 40 MG TAB PO SCH (08:03)
[2017-09-18] MEDS: APIXABAN 2.5 MG TAB PO SCH (08:03)
[2017-09-18 08:05] VITALS: BP 156/92; PULSE 73
[2017-09-18] MEDS: CARVEDILOL 25 MG TAB PO SCH (08:06)
[2017-09-18] MEDS: AMLODIPINE BESYLATE 5 MG TAB PO SCH (08:07)
[2017-09-18] MEDS: LISINOPRIL/HCTZ 20/25MG TAB PO SCH (08:07)
[2017-09-18] MEDS: TAPENTADOL ER 50 MG TABCR PO SCH (08:09)
--- NOTE | 2017-09-18 08:40 | PROGRESS NOTE ---
DATE: 09/18/2017 SUBJECTIVE: A 61-year-old gentleman postop day 2 from left knee replacement, doing pretty well. Little bit more painful yesterday and last night after therapy. No chest pain or shortness of breath. Not feeling dizzy or lightheaded. OBJECTIVE: VITAL SIGNS: Temperature 37.4. Vital signs stable. GENERAL: Physical examination shows a pleasant, middle-aged male. He is sitting up in bed and eating breakfast. Looks pretty comfortable. EXTREMITIES: Examination of the left leg reveals it to be well aligned. Dressing is clean, dry, and intact. His calf is soft and supple. He can dorsiflex and plantarflex his foot appropriately. ASSESSMENT: A 61-year-old gentleman postop day 2 from a left knee replacement, doing pretty well. Pain is reasonably well controlled. PLAN: 1. DVT prophylaxis including thigh-high TEDs, SCDs, and Eliquis. We will put him back on his therapeutic dose tomorrow upon discharge. Still prophylactic dose today. 2. PT/OT. Weight bear as tolerated. Left total knee protocol. 3. Pain control. Doing reasonably well with current pain regimen. 4. Disposition: Plan to discharge to home with some home health after therapy today.
[2017-09-18 11:08] VITALS: BP 156/92; PULSE 73; TEMP 37.4; O2SAT 92
--- NOTE | 2017-09-20 15:43 | DISCHARGE SUMMARY ---
ADMITTING PHYSICIAN AND SURGEON: Dr. Johnson. ADMITTING DIAGNOSIS: Left knee degenerative joint disease. SURGERY PERFORMED: Left total knee arthroplasty. SECONDARY DIAGNOSES: Diabetes, elevated cholesterol, hypertension, atrial fibrillation, mild obesity. CONSULTS: None obtained. HISTORY AND PHYSICAL EXAMINATION: Well documented in patient's chart. HOSPITAL COURSE: The patient was admitted on 09/16/2017 underwent total knee arthroplasty, tolerated the procedure well. There were no complications. He was transferred to the PACU postoperatively and later to the orthopedic for further care. He was given Ancef for antibiotic prophylaxis, FRANCES stockings, SCDs and Eliquis for DVT prophylaxis. Hemoglobin, hematocrit and vital signs were monitored during his hospital stay and remained stable, did not require any blood transfusions. There were no complications. By postoperative day 2, he was tolerating a diabetic diet. Pain was controlled with oral pain medicine. He was participating in physical therapy. On postop day 2, he was discharged home, set up with home health services, given printed discharge instructions including new prescriptions for extra strength Tylenol, oxycodone. Continue his home medications including Eliquis. Continue physical therapy, weightbearing as tolerated, FRANCES stockings. Follow up in 10-12 days or sooner if there are any problems or concerns.
== END 2017-09-18 12:57 | disposition home health service (06) | DRG 470 ==
LOC: C.ACU 06:21 → C.3E 06:30 → ENRESERV 11:56
PROVIDERS: ADMIT Orthopaedic Surgery Sports Medicine; ATTEND Orthopaedic Surgery Sports Medicine
PROC: 0SRD0J9 Replacement of Left Knee Joint with Synthetic Substitute, Cemented, Open Approach (ICD-10-PCS; principal; 2017-09-16 09:00)
DX: M17.12 Unilateral primary osteoarthritis, left knee (principal); E11.9 Type 2 diabetes mellitus without complications; I11.9 Hypertensive heart disease without heart failure; E78.00 Pure hypercholesterolemia, unspecified; I48.91 Unspecified atrial fibrillation; E66.9 Obesity, unspecified; Z79.899 Other long term (current) drug therapy; Z79.84 Long term (current) use of oral hypoglycemic drugs; Z79.82 Long term (current) use of aspirin; Z68.34 Body mass index [BMI] 34.0-34.9, adult

== ENCOUNTER 2024-04-20 15:28 | Inpatient (IN) ==
[2024-04-20] MEDS: SODIUM CHLORIDE 0.9% 1,000 ML IV SCH ×2 (16:28→18:53)
[2024-04-20 16:29] LABS: Basophils # (auto) 0.04 K/uL (0.00-0.20); Basophils % (auto) 0.3 %; Eosinophils # (auto) 0.03 K/uL (0.00-0.50); Eosinophils % (auto) 0.2 %; Hematocrit (blood only) 42.1 % (42.0-52.0); Hemoglobin 14.4 g/dl (14.0-18.0); Immature Granulocytes # (auto) 0.11 K/uL (0.01-0.20); Immature Granulocytes % (auto) 0.9 %; Lymphocytes # (auto) 1.03 K/uL (1.20-3.40); Lymphocytes % (auto) 8.3 %; Mean Corpuscular Hgb Conc 34.2 g/dL (32.0-36.0); Mean Corpuscular Volume 90.5 fL (80.0-100.0); Mean Platelet Volume 9.4 fL (9.4-12.4); Monocytes # (auto) 2.15 K/uL (0.11-0.59); Monocytes % (auto) 17.3 %; Neutrophils # (auto) 9.04 K/uL (1.40-6.50); Platelet Count 239 K/uL (130-400); RDW Coefficient of Variation 12.5 % (11.5-14.5); RDW Standard Deviation 41.2 fL (36.4-46.3); Red Blood Count 4.65 M/uL (4.70-6.10)
[2024-04-20 16:36] LABS: BUN Creatinine Ratio 26.7 (10-20); Bilirubin Direct 0.2 mg/dl (0-0.2); Bilirubin,Total 1.1 mg/dl (0.2-1.0); Calcium 8.3 mg/dl (8.6-10.3); Creatinine Clr Calc Pharmacy 46.8 ml/min; Magnesium 1.9 mg/dl (1.7-2.4); Potassium 4.7 mmol/L (3.5-5.1); Total Protein 7.5 gm/dl (6.0-8.3)
--- NOTE | 2024-04-20 16:40 | XRay Report ---
EXAM: Radiograph of the Chest 1 View INDICATION: Sepsis. COVID. TECHNIQUE: Frontal view of the chest. COMPARISON: 04/16/2024 FINDINGS: Lungs and pleural spaces: Stable scarring in the medial right lung base. No consolidation or pulmonary edema. No pleural effusion or pneumothorax. Heart: Shape and configuration within normal limits allowing for technique. Mediastinum: Normal contour. Bones/joints: Degenerative changes noted throughout the spine. No acute osseous abnormality seen. Soft tissues: No abnormality noted. No radiopaque foreign body noted. Upper abdomen: No abnormality noted. IMPRESSION: Stable scarring in the medial right lung base. No acute abnormality. ACT 112: Negative or not required by law. Electronically signed by Shanae Ramos 04-20-2024 4:40 PM
[2024-04-20 16:43] LABS: Troponin I High Sensitivity 7.8 pg/ml (0-20)
[2024-04-20 16:46] LABS: D Dimer 410 ug/L FEU (0-500); INR 1.1 (0.9-1.1); Partial Thromboplastin Ratio 1.1; Partial Thromboplastin Time 30 Seconds (21-31); Prothrombin Time 11.9 Seconds (9.0-12.0)
--- NOTE | 2024-04-20 16:46 | CT Scan Report ---
EXAM: CT Head Without Intravenous Contrast INDICATION: COVID-positive. Weakness. TECHNIQUE: Axial computed tomography images of the head/brain without intravenous contrast. Sagittal and/or coronal reformats are provided. Sagittal and coronal reformatted images were created and reviewed. This CT exam was performed using one or more of the following dose reduction techniques: automated exposure control, adjustment of the mA and/or kV according to patient size, and/or use of iterative reconstruction technique. COMPARISON: There is dense calcification of the intracranial right vertebral artery. FINDINGS: Limitations: None. Brain and extra-axial spaces: Generalized cortical atrophy and chronic small vessel ischemic change. There is moderate dilatation of the lateral and third ventricles. The temporal horns are mild to moderately dilated measuring 8 mm. Fourth ventricle relatively normal. No acute infarct. No hemorrhage. No mass or extra-axial fluid collection. Bones/joints: No acute changes. Soft tissues: No significant abnormality noted. Vasculature: No acute abnormality noted. Sinuses: No layering fluid in the visualized portions of the paranasal sinuses. Mastoid air cells: No mastoid effusion. Orbits: No significant abnormality noted. IMPRESSION: 1. No acute abnormality. 2. Findings strongly suspicious gs for normal press such re hydrocephalus. ACT 112: Negative or not required by law. Electronically signed by Shanae Ramos 04-20-2024 4:45 PM
[2024-04-20 16:56] LABS: Base Excess VBG -5.2 mEq/L; HCO3 VBG 20 mmol/L; PCO2 VBG 37 mmHg (38-50); PO2 VBG 41 mmHg; pH VBG 7.34 (7.36-7.41)
--- NOTE | 2024-04-20 18:58 | History & Physical Report ---
<Statement entered by Roberto Pearce, - 04/20/24 20:17> I have seen and examined the patient and have discussed the case with the provider above. I have reviewed the advanced practitioner's documentation, and I agree with, and take responsibility for that plan of care. Patient seen and examined while still in ED. No acute distress, nontoxic. Patient with hyponatremia most likely due to recent upper respiratory infection with COVID-19 and poor solute intake. Reviewed findings of CT of the head with patient and family. Daughter says he did have some ambulatory dysfunction even before he got sick with COVID. I suspect CT head findings most likely due to cerebral atrophy enlargement of the ventricles due to this. Much lower suspicion for NPH. May need outpatient workup if continues to have ambulatory dysfunction after he has recovered from his COVID. Discussed plan of care as documented below with RANDY Date of Service April 20, 2024 Assessment & Plan (1) COVID-19: (2) Hyponatremia: (3) Dehydration: (4) Generalized weakness: (5) Permanent atrial fibrillation: (6) CKD (chronic kidney disease), stage III: (7) Abnormal CT scan, head: (8) HTN (hypertension): (9) Dyslipidemia: Plan: #Generalized weakness #COVID-19 #hyponatremia #Dehydration Patient is 68 year old male with PMH DM II, HTN, dyslipidemia, permanent atrial fibrillation anticoagulated on Eliquis, CKD III presented to ER with c/o URI sy mptoms, cough, weakness x 5 days. Dx COVID-19 on 04/16/2024 In ER afebrile, P: 76, R: 20, BP 92/61, 95% on room air WBC: 12. Lactate WNL, procalcitonin: 0.1. negative troponin. EKG atrial fibrillation, rate 73 per my interpretation Na: 124. BUN: 48, Cr: 1.8. Baseline Cr: 1.7 CXR: Stable scarring in the medial right lung base. No acute abnormality. In ER given 1 L NSS followed by 80 mL/hour Serum osmolality, urine osmolality and urine sodium pending Will repeat BMP tonight to determine further IVF needs Hold home lisinopril, HCTZ, spironolactone given dehydration and electrolyte abnormality Airborne isolation Will hold on dexamethasone and remdesivir as no hypoxia, no signs of covid pneumonia on cxr Supplemental oxygen as needed Xopenex nebs prn Guaifenesin Incentive spirometry, flutter valve CBC, BMP in am Fall precautions PT/OT eval #CKD III BUN: 48, Cr: 1.8. Baseline Cr: 1.7 per outpatient chart review Monitor renal functions, avoid nephrotoxic agents when possible #HTN Hold home lisinopril, HCTZ, spironolactone Continue home carvedilol with holding parameters #Afib Permanent afib anticoagulated on Eliquis Rate controlled Continue Eliquis and carvedilol #Abnormal CT head CT head: Generalized cortical atrophy and chronic small vessel ischemic change. There is moderate dilatation of the lateral and third ventricles. The temporal horns are mild to moderately dilated measuring 8 mm. Fourth ventricle relatively normal. No acute infarct. No hemorrhage. No mass or extra-axial fluid collection. Concern for normal pressure hydrocephalus Pt reports feeling off balance for couple of months Will need further workup #DM II A1c: 7.6 on 11/28/23 Hold home oral glycemic agents NovoLog correction sliding scale per protocol A1c in AM DVT Prophylaxis On Eliquis Admit med tele Full Code as per discussion with pt Follows with Dr Leon for routine care Pt was seen and care coordinated with Dr Pearce. See addendum I spent a total of 68 minutes reviewing notes, outpatient records, labs, medication, coordinating, documenting and providing care for this patient excluding time spent in the performance of separately billed services. History of Present Illness Chief Complaint: cough, increased weakness, recent dx of COVID-19 Primary Care Provider: Saray Leon, Patient is 68 year old male with PMH DM II, HTN, dyslipidemia, permanent atrial fibrillation anticoagulated on Eliquis, CKD III presented to ER with c/o cough, weakness x 5 days. Patient reports sore throat, rhinorrhea, nasal congestion, productive cough, generalized weakness started 5 days ago. Was seen [facility] ER on 04/16/2024 for URI symptoms and diagnosed with COVID-19, did not have hypoxia at that time and patient had denied paxlovid. He has been taking Coricidin at home. Reports sore throat improved, nasal congestion seems to be decreasing, still with productive yellow cough. Reports progressive generalized weakness and feeling weak with walking and "wiped out". Reports some SOB with exertion. Denies CP or palpitations. States for past 2 months has been more off balance. Reports had a fall approximately one month ago. Reports decreased appetite and decreased oral intake. Denies vomiting or diarrhea. Denies known ill contacts. Denies known prior COVID-19 infection in past. States had initial COVID-19 vaccinations but no boosters recently. Denies fever/chills, hemoptysis, dizziness, syncope, vision changes, neck pain, CP, abdominal pain, paresthesias, extremity edema, rashes, urinary symptoms. Per outpatient cardiology note on 02/22/24 patient carvedilol decreased to 6.25mg BID. Allergies Allergy/AdvReac Type Severity Reaction Status Date / Time No Known Allergies Allergy Unknown Unverified 09/16/17 07:31 Home Medications Medication Instructions Recorded Confirmed Type lisinopril 20 1 tab PO QAM #0 tabs 08/23/17 04/20/24 History mg-hydrochlorothiazide 25 mg tablet apixaban 5 mg tablet (Eliquis) 5 mg PO BID #0 tabs 09/16/17 04/20/24 History aspirin 81 mg tablet,delayed 81 mg PO DAILY 04/20/24 04/20/24 History release carvedilol 6.25 mg tablet 6.25 mg PO BID 04/20/24 04/20/24 History glipizide 5 mg tablet, extended 5 mg PO DAILY 04/20/24 04/20/24 History release 24 hr metformin 500 mg tablet 500 mg PO DAILY 04/20/24 04/20/24 History rosuvastatin 10 mg tablet 10 mg PO DAILY 04/20/24 04/20/24 History spironolactone 50 mg tablet 50 mg PO DAILY 04/20/24 04/20/24 History Past Med/Surg History Problem List (Updated 04/20/24 @ 20:01 by Aparna Martínez PA-C) Generalized weakness Abnormal CT scan, head CKD (chronic kidney disease), stage III Dyslipidemia Permanent atrial fibrillation Dehydration Hyponatremia COVID-19 (Acute) Diabetes (Chronic) HTN (hypertension) (Chronic) Surgical History (Updated 04/20/24 @ 19:57 by Aparna Martínez PA-C) History of hernia surgery History of arthroplasty of knee History of colonoscopy Family History (Updated 04/20/24 @ 19:58 by Aparna Martínez PA-C) Other Heart disease Hypertension Social History (Updated 04/20/24 @ 19:58 by Aparna Martínez PA-C) Smoking Status: Never smoker Hx Alcohol Use: Yes Alcohol type: wine Alcohol Intake Frequency: 2-4 x/Month Hx Substance Use: No Preferred Language: Persian Feels Safe at Home: Yes Review of Systems Review of Systems: All systems reviewed & are unremarkable except as noted in HPI & below Physical Exam Physical Exam: General: no distress, obese Head: normocephalic, atraumatic Eyes: conjunctiva non-injected, anicteric ENT: normal inspection external ears, nose, mucous membranes dry Neck: supple, trachea midline Lungs: no respiratory distress, 95% on RA, +coarse breath sounds without rales noted CV: irregularly irregular, rate 72, no pretibial edema Abd: normal BS, soft, non-tender Ext: no cyanosis, no calf tenderness Neuro: A&O x 3, no focal deficits noted, normal affect Skin: warm, dry Results & Data Results & Data Vital Signs (Past 12 Hours) Vital Signs Temp Pulse Pulse Resp BP BP Pulse Ox 04/20/24 18:32 77 18 118/79 96 04/20/24 18:01 76 20 110/69 95 04/20/24 17:08 67 18 97/61 L 94 04/20/24 16:14 96 04/20/24 16:12 70 22 89/53 L 96 04/20/24 15:55 74 04/20/24 15:32 36.7 C 76 20 92/61 L 95 O2 Del Method 04/20/24 18:32 Room Air 04/20/24 18:01 Room Air 04/20/24 17:08 Room Air 04/20/24 16:14 Room Air 04/20/24 16:12 04/20/24 15:55 04/20/24 15:32 Room Air Laboratory Results Short CBC 04/20/24 Range/Units 15:50 WBC 12.40 H (4.8-10.8) K/ul Hgb 14.4 (14.0-18.0) g/dl Hct 42.1 (42.0-52.0) % Plt Count 239 (130-400) K/uL BMP 04/20/24 15:50 Sodium 124 L Potassium 4.7 Chloride 93 L Carbon Dioxide 23 BUN 48 H Creatinine 1.80 H Glucose 155 H Calcium 8.3 L Liver Function 04/20/24 Range/Units 15:50 Total Bilirubin 1.1 H (0.2-1.0) mg/dl Direct Bilirubin 0.2 (0-0.2) mg/dl AST 27 (13-39) U/L ALT 22 (7-52) U/L Alkaline Phosphatase 52 (34-104) U/L Albumin 4.0 (3.4-5.0) gm/dl Urine 04/20/24 Range/Units 19:00 Urine Color Yellow Urine Appearance Clear (Clear) Urine pH 5.0 (4.5-7.5) Ur Specific [place] 1.015 (1.000-1.030) Urine Protein Negative (Negative) Urine Glucose (UA) Negative (Negative) Diagnostic Findings Chest X-Ray 04/20/24 16:08 EXAM: Radiograph of the Chest 1 View INDICATION: Sepsis. COVID. TECHNIQUE: Frontal view of the chest. COMPARISON: 04/16/2024 FINDINGS: Lungs and pleural spaces: Stable scarring in the medial right lung base. No consolidation or pulmonary edema. No pleural effusion or pneumothorax. Heart: Shape and configuration within normal limits allowing for technique. Mediastinum: Normal contour. Bones/joints: Degenerative changes noted throughout the spine. No acute osseous abnormality seen. Soft tissues: No abnormality noted. No radiopaque foreign body noted. Upper abdomen: No abnormality noted. IMPRESSION: Stable scarring in the medial right lung base. No acute abnormality. ACT 112: Negative or not required by law. Electronically signed by Shanae Ramos 04-20-2024 4:[address] 04/20/24 16:23 EXAM: CT Head Without Intravenous Contrast INDICATION: COVID-positive. Weakness. TECHNIQUE: Axial computed tomography images of the head/brain without intravenous contrast. Sagittal and/or coronal reformats are provided. Sagittal and coronal reformatted images were created and reviewed. This CT exam was performed using one or more of the following dose reduction techniques: automated exposure control, adjustment of the mA and/or kV according to patient size, and/or use of iterative reconstruction technique. COMPARISON: There is dense calcification of the intracranial right vertebral artery. FINDINGS: Limitations: None. Brain and extra-axial spaces: Generalized cortical atrophy and chronic small vessel ischemic change. There is moderate dilatation of the lateral and third ventricles. The temporal horns are mild to moderately dilated measuring 8 mm. Fourth ventricle relatively normal. No acute infarct. No hemorrhage. No mass or extra-axial fluid collection. Bones/joints: No acute changes. Soft tissues: No significant abnormality noted. Vasculature: No acute abnormality noted. Sinuses: No layering fluid in the visualized portions of the paranasal sinuses. Mastoid air cells: No mastoid effusion. Orbits: No significant abnormality noted. IMPRESSION: 1. No acute abnormality. 2. Findings strongly suspicious gs for normal press such re hydrocephalus. ACT 112: Negative or not required by law. Electronically signed by Shanae Ramos 04-20-2024 4:45 PM
[2024-04-20 19:34] LABS: Appearance Urine Clear (Clear); Bilirubin Urine Negative (Negative); Blood Urine Negative (Negative); Color Urine Yellow; Glucose Urine UA Negative (Negative); Ketones Urine Negative (Negative); Leukocyte Esterase Urine Negative (Negative); Nitrite Urine Negative (Negative); Protein Urine Negative (Negative); Specific Gravity Urine 1.015 (1.000-1.030); Urobilinogen Urine Negative (Negative)
[2024-04-20] MEDS ORDERED: GLUCOSE 40% GEL 15 GM TUBE PO PRN (20:49)
[2024-04-20] MEDS ORDERED: DEXTROSE 50% 50 ML SYRINGE IV PRN (20:49)
[2024-04-20] MEDS ORDERED: POLYETHYLENE (MIRALAX) 17 GM PACK PO PRN (20:49)
[2024-04-20] MEDS ORDERED: GLUCAGON FOR INJ 1 MG VIAL SQ PRN (20:49)
[2024-04-20] MEDS ORDERED: GLUCOSE 10 TAB/TUBE PO PRN (20:49)
[2024-04-20] MEDS ORDERED: ACETAMINOPHEN 325 MG TAB PO PRN (20:49)
[2024-04-20] MEDS ORDERED: CARBOHYDRATES FOR HYPOGLYCEMIA PO PRN (20:49)
[2024-04-20] MEDS ORDERED: LEVALBUTEROL 1.25 MG/3 ML NEB NEB PRN (20:49)
[2024-04-20 21:20] LABS: Calcium 7.8 mg/dl (8.6-10.3); Creatinine Clr Calc Pharmacy 54.4 ml/min; Potassium 4.9 mmol/L (3.5-5.1)
[2024-04-20] MEDS: INSULIN ASPART PER UNIT CHARGE SC SCH (21:31)
[2024-04-20] MEDS: guaiFENesin 600 MG TABCR PO SCH (21:32)
[2024-04-20] MEDS: carvediloL 6.25 MG TAB PO SCH (21:32)
[2024-04-20] MEDS: APIXABAN 5 MG TABLET PO SCH (21:32)
--- NOTE | 2024-04-21 00:31 | Emergency Department Note ---
History of Present Illness General Chief Complaint: Flu Like Symptoms Stated Complaint: COVID, VOMITING, CONGESTION, WEAKNESS, COUGH, SOB Time Seen by Provider: 04/20/24 16:08 History of Present Illness Provider Complaint: + fever, + cough, + rhinorrhea and + nasal congestion Onset (ago): 6 day(s) Severity: moderate Maximum Pain Intensity: 7 Able to tolerate fluids by mouth: No Associated symptoms: + fever, + myalgias, + chest pain, + shortness of breath, + nausea, + vomiting and + diarrhea HPI Narrative: Patient diagnosed with COVID on Tuesday. Symptoms began on Tuesday. Home Medications Medication Instructions Recorded Confirmed Type lisinopril 20 1 tab PO QAM #0 tabs 08/23/17 04/20/24 History mg-hydrochlorothiazide 25 mg tablet apixaban 5 mg tablet (Eliquis) 5 mg PO BID #0 tabs 09/16/17 04/20/24 History aspirin 81 mg tablet,delayed 81 mg PO DAILY 04/20/24 04/20/24 History release carvedilol 6.25 mg tablet 6.25 mg PO BID 04/20/24 04/20/24 History glipizide 5 mg tablet, extended 5 mg PO DAILY 04/20/24 04/20/24 History release 24 hr metformin 500 mg tablet 500 mg PO DAILY 04/20/24 04/20/24 History rosuvastatin 10 mg tablet 10 mg PO DAILY 04/20/24 04/20/24 History spironolactone 50 mg tablet 50 mg PO DAILY 04/20/24 04/20/24 History Allergies Allergy/AdvReac Type Severity Reaction Status Date / Time No Known Allergies Allergy Unknown Unverified 09/16/17 07:31 Past Med/Surg History Problem List (Updated 04/21/24 @ 00:31 by Phil Belcher MD) Acute kidney injury superimposed on chronic kidney disease (Acute) Generalized weakness Abnormal CT scan, head CKD (chronic kidney disease), stage III Dyslipidemia Permanent atrial fibrillation Dehydration Hyponatremia (Acute) COVID-19 (Acute) Diabetes (Chronic) HTN (hypertension) (Chronic) Surgical History History of hernia surgery History of arthroplasty of knee History of colonoscopy Family History Other Heart disease Hypertension Social History Smoking Status: Never smoker Hx Alcohol Use: Yes Alcohol type: wine Alcohol Intake Frequency: 2-4 x/Month Hx Substance Use: No Preferred Language: Brazilian Communication Ability: Effective [employer] Required: No Beliefs That Will Affect Care: None Current Living Situation: Alone Other Information That Helps Us Care for You: No Feels Safe at Home: Yes Safety Concerns: Feels Safe At This Time Assistive Devices: Cane Physical Exam 2 Vital Signs: Vital Signs - 24 hr 04/20/24 15:32 04/20/24 15:55 04/20/24 16:12 Temperature 36.7 C Temperature Source Oral Pulse Rate 76 74 Pulse Rate [Apical ] 70 Pulse Rhythm [Apic al] Pulse Strength [Ap ical] Respiratory Rate 20 22 Respiratory Effort / Characteristics Non-Labored Sponta neous Respiratory Depth Normal Respiratory Patter n Regular Blood Pressure 92/61 L Blood Pressure [Le ft Arm] 89/53 L Blood Pressure Morenita n 71 Blood Pressure Morenita n [Left Arm] 65 Blood Pressure Pos ition [Left Arm] Pulse Oximetry 95 96 Oxygen Delivery Me thod Room Air Sepsis Recent Feve r Within 48 Hours No Sepsis New/Unexpla ined Change in Men bandar Status N/A Sepsis Action Take n by Nursing No Action Required 04/20/24 16:14 04/20/24 17:08 04/20/24 18:01 Temperature Temperature Source Pulse Rate Pulse Rate [Apical ] 67 76 Pulse Rhythm [Apic al] Pulse Strength [Ap ical] Respiratory Rate 18 20 Respiratory Effort / Characteristics Respiratory Depth Respiratory Patter n Blood Pressure Blood Pressure [Le ft Arm] 97/61 L 110/69 Blood Pressure Morenita n Blood Pressure Morenita n [Left Arm] 73 82 Blood Pressure Pos ition [Left Arm] Pulse Oximetry 96 94 95 Oxygen Delivery Me thod Room Air Room Air Room Air Sepsis Recent Feve r Within 48 Hours Sepsis New/Unexpla ined Change in Men bandar Status Sepsis Action Take n by Nursing 04/20/24 18:32 04/20/24 19:00 Temperature Temperature Source Pulse Rate Pulse Rate [Apical ] 77 70 Pulse Rhythm [Apic al] Regular Pulse Strength [Ap ical] Normal Respiratory Rate 18 18 Respiratory Effort / Characteristics Non-Labored Respiratory Depth Normal Respiratory Patter n Regular Blood Pressure Blood Pressure [Le ft Arm] 118/79 114/79 Blood Pressure Morenita n Blood Pressure Morenita n [Left Arm] 92 90 Blood Pressure Pos ition [Left Arm] Sitting Pulse Oximetry 96 96 Oxygen Delivery Me thod Room Air Room Air Sepsis Recent Feve r Within 48 Hours Sepsis New/Unexpla ined Change in Men bandar Status Sepsis Action Take n by Nursing Physical Exam: Physical Exam HENT: Exam performed. - Head: Normocephalic and atraumatic. EYES: Conjunctivae and EOM are normal. Pupils are equal, round, and reactive to light. Right eye exhibits no discharge. Left eye exhibits no discharge. No scleral icterus. NECK: Normal range of motion. Neck supple. No rigidity. No tracheal deviation and normal range of motion present. CV: Normal rate, irregular rhythm, normal heart sounds and intact distal pulses. There is no peripheral edema. Palpable radial pulses bue. PULM/CHEST: Effort normal and breath sounds normal. No respiratory distress. No stridor. He has no wheezes. He has no rales. ABD: The abdomen is soft. There is no tenderness. There is no rebound, no guarding. MUSC/SKEL: Normal range of motion. There is no peripheral edema, tenderness or deformity. LYMPH: No cervical adenopathy. NEURO: He is alert and oriented to person, place, and time. He has normal strength. No cranial nerve deficit or sensory deficit. Coordination and gait normal. GCS eye subscore is 4. GCS verbal subscore is 5. GCS motor subscore is 6. Cerebellar tests wnl. SKIN: Skin is warm and dry. He is not diaphoretic. PSYCH: He has a normal mood and affect. Behavior is normal. Judgment and thought content normal. Course Course 1608: The patient was evaluated in room C6. A complete history and physical exam was performed Cardiac monitoring: An order was placed for continuous cardiac monitoring. The monitor shows a rate of 70 with atrial fibrilation rhythm interpreted by me 1800: Vital signs stable. Labs show white blood cell count of 12.4. VBG unremarkable. Sodium 124. Creatinine 1.8. Imaging shows possible normal pressure hydrocephalus. Patient not having seizure-like activity. No need for hypertonic saline. Patient be gently hydrated with normal saline. [facility]. Administered Medications Apixaban (Apixaban 5 Mg Tablet) 5 mg PO BID SAMSON Stop: 05/20/24 20:59 Last Admin: 04/20/24 21:32 Dose: 5 mg Documented By: SARAN Carvedilol (Carvedilol 6.25 Mg Tab) 6.25 mg PO BID SAMSON Stop: 05/20/24 20:59 Last Admin: 04/20/24 21:32 Dose: 6.25 mg Documented By: SARAN Guaifenesin (Guaifenesin 600 Mg Tabcr) 1,200 mg PO Q12 SAMSON Stop: 05/20/24 20:59 Last Admin: 04/20/24 21:32 Dose: 1,200 mg Documented By: SARAN Sodium Chloride (Nss) 1,000 mls @ 80 mls/hr IV .[id number] SAMSON Stop: 04/21/24 17:59 Last Admin: 04/20/24 18:53 Dose: 80 mls/hr Documented By: DANIELA Insulin Aspart (Insulin Aspart Per Unit Charge) 0 units SC ACHS SAMSON Stop: 05/20/24 20:59 Last Admin: 04/20/24 21:31 Dose: 1 units Documented By: SARAN Co-signed By: AES Discontinued Medications Sodium Chloride (Nss) 1,000 mls @ 999 mls/hr IV .[id number] SAMSON Stop: 04/20/24 17:15 Last Infusion: 04/20/24 18:00 Dose: Infused Documented By: Admin: 04/20/24 16:28 Dose: 999 mls/hr Documented By: DANIELA Medical Decision Making Laboratory Data Attestation: I reviewed the patient's lab results. 04/20/24 15:50 04/20/24 20:50 Lab Results 04/20/24 04/20/24 04/20/24 Range/Units 15:50 16:21 18:58 WBC 12.40 H (4.8-10.8) K/ul RBC 4.65 L (4.70-6.10) M/uL Hgb 14.4 (14.0-18.0) g/dl Hct 42.1 (42.0-52.0) % MCV 90.5 (80.0-100.0) fL MCH 31.0 (25.0-34.0) pg MCHC 34.2 (32.0-36.0) g/dL RDW Std Deviation 41.2 (36.4-46.3) fL RDW Coeff of [place] 12.5 (11.5-14.5) % Plt Count 239 (130-400) K/uL MPV 9.4 (9.4-12.4) fL Immature Gran % (Auto) 0.9 % Neut % (Auto) 73.0 % Lymph % (Auto) 8.3 % [place] % (Auto) 17.3 % Eos % (Auto) 0.2 % Baso % (Auto) 0.3 % Neut # (Auto) 9.04 H (1.40-6.50) K/uL Lymph # (Auto) 1.03 L (1.20-3.40) K/uL [place] # (Auto) 2.15 H (0.11-0.59) K/uL Eos # (Auto) 0.03 (0.00-0.50) K/uL Baso # (Auto) 0.04 (0.00-0.20) K/uL Immature Gran # (Auto) 0.11 (0.01-0.20) K/uL PT 11.9 (9.0-12.0) Seconds INR 1.1 (0.9-1.1) APTT 30 (21-31) Seconds PTT Ratio 1.1 D-Dimer 410 (0-500) ug/L FEU VBG pH 7.34 L (7.36-7.41) VBG pCO2 37 L (38-50) mmHg VBG pO2 41 mmHg VBG HCO3 20 mmol/L VBG O2 Saturation 70.0 % VBG Base Excess -5.2 mEq/L Sodium 124 L (136-145) mmol/L Potassium 4.7 (3.5-5.1) mmol/L Chloride 93 L (98-107) mmol/L Carbon Dioxide 23 (21-32) mmol/L Anion Gap 8 (3-11) BUN 48 H (6-23) mg/dl Creatinine 1.80 H (0.6-1.4) mg/dl Est Cr Clr Drug Dosing 46.8 ml/min eGFR 40.24 BUN/Creatinine Ratio 26.7 H (10-20) Glucose 155 H (70-99(Fasting)) mg/dl Osmolality 279 L (280-300) mOsm/kg Lactate 1.1 (0.4-2.0) mmol/L Calcium 8.3 L (8.6-10.3) mg/dl Magnesium 1.9 (1.7-2.4) mg/dl Total Bilirubin 1.1 H (0.2-1.0) mg/dl Direct Bilirubin 0.2 (0-0.2) mg/dl AST 27 (13-39) U/L ALT 22 (7-52) U/L Alkaline Phosphatase 52 (34-104) U/L Troponin I High Sens 7.8 (0-20) pg/ml Total Protein 7.5 (6.0-8.3) gm/dl Albumin 4.0 (3.4-5.0) gm/dl Procalcitonin 0.11 (0-0.5) ng/ml Urine Color Urine Appearance (Clear) Urine pH (4.5-7.5) Ur Specific [place] (1.000-1.030) Urine Protein (Negative) Urine Glucose (UA) (Negative) Urine Ketones (Negative) Urine Blood (Negative) Urine Nitrite (Negative) Urine Bilirubin (Negative) Urine Urobilinogen (Negative) Ur Leukocyte Esterase (Negative) Urine Osmolality (500-800) mOsm/kg Ur Random Sodium mmol/L 04/20/24 Range/Units 19:00 WBC (4.8-10.8) K/ul RBC (4.70-6.10) M/uL Hgb (14.0-18.0) g/dl Hct (42.0-52.0) % MCV (80.0-100.0) fL MCH (25.0-34.0) pg MCHC (32.0-36.0) g/dL RDW Std Deviation (36.4-46.3) fL RDW Coeff of [place] (11.5-14.5) % Plt Count (130-400) K/uL MPV (9.4-12.4) fL Immature Gran % (Auto) % Neut % (Auto) % Lymph % (Auto) % [place] % (Auto) % Eos % (Auto) % Baso % (Auto) % Neut # (Auto) (1.40-6.50) K/uL Lymph # (Auto) (1.20-3.40) K/uL [place] # (Auto) (0.11-0.59) K/uL Eos # (Auto) (0.00-0.50) K/uL Baso # (Auto) (0.00-0.20) K/uL Immature Gran # (Auto) (0.01-0.20) K/uL PT (9.0-12.0) Seconds INR (0.9-1.1) APTT (21-31) Seconds PTT Ratio D-Dimer (0-500) ug/L FEU VBG pH (7.36-7.41) VBG pCO2 (38-50) mmHg VBG pO2 mmHg VBG HCO3 mmol/L VBG O2 Saturation % VBG Base Excess mEq/L Sodium (136-145) mmol/L Potassium (3.5-5.1) mmol/L Chloride (98-107) mmol/L Carbon Dioxide (21-32) mmol/L Anion Gap (3-11) BUN (6-23) mg/dl Creatinine (0.6-1.4) mg/dl Est Cr Clr Drug Dosing ml/min eGFR BUN/Creatinine Ratio (10-20) Glucose (70-99(Fasting)) mg/dl Osmolality (280-300) mOsm/kg Lactate (0.4-2.0) mmol/L Calcium (8.6-10.3) mg/dl Magnesium (1.7-2.4) mg/dl Total Bilirubin (0.2-1.0) mg/dl Direct Bilirubin (0-0.2) mg/dl AST (13-39) U/L ALT (7-52) U/L Alkaline Phosphatase (34-104) U/L Troponin I High Sens (0-20) pg/ml Total Protein (6.0-8.3) gm/dl Albumin (3.4-5.0) gm/dl Procalcitonin (0-0.5) ng/ml Urine Color Yellow Urine Appearance Clear (Clear) Urine pH 5.0 (4.5-7.5) Ur Specific [place] 1.015 (1.000-1.030) Urine Protein Negative (Negative) Urine Glucose (UA) Negative (Negative) Urine Ketones Negative (Negative) Urine Blood Negative (Negative) Urine Nitrite Negative (Negative) Urine Bilirubin Negative (Negative) Urine Urobilinogen Negative (Negative) Ur Leukocyte Esterase Negative (Negative) Urine Osmolality 493 L (500-800) mOsm/kg Ur Random Sodium 53 mmol/L Imaging Data Attestation: I personally reviewed and interpreted this imaging study as follows: My Impression: Chest x-ray negative. Airway clear. No pneumothorax. No consolidation. No cardiomegaly or cephalization.. No free air under the diaphragm. No fractures of the skeletal structures. Radiologist's Impression: Chest X-Ray 04/20/24 16:08 EXAM: Radiograph of the Chest 1 View INDICATION: Sepsis. COVID. TECHNIQUE: Frontal view of the chest. COMPARISON: 04/16/2024 FINDINGS: Lungs and pleural spaces: Stable scarring in the medial right lung base. No consolidation or pulmonary edema. No pleural effusion or pneumothorax. Heart: Shape and configuration within normal limits allowing for technique. Mediastinum: Normal contour. Bones/joints: Degenerative changes noted throughout the spine. No acute osseous abnormality seen. Soft tissues: No abnormality noted. No radiopaque foreign body noted. Upper abdomen: No abnormality noted. IMPRESSION: Stable scarring in the medial right lung base. No acute abnormality. ACT 112: Negative or not required by law. Electronically signed by Shanae Ramos 04-20-2024 4:[address] 04/20/24 16:23 EXAM: CT Head Without Intravenous Contrast INDICATION: COVID-positive. Weakness. TECHNIQUE: Axial computed tomography images of the head/brain without intravenous contrast. Sagittal and/or coronal reformats are provided. Sagittal and coronal reformatted images were created and reviewed. This CT exam was performed using one or more of the following dose reduction techniques: automated exposure control, adjustment of the mA and/or kV according to patient size, and/or use of iterative reconstruction technique. COMPARISON: There is dense calcification of the intracranial right vertebral artery. FINDINGS: Limitations: None. Brain and extra-axial spaces: Generalized cortical atrophy and chronic small vessel ischemic change. There is moderate dilatation of the lateral and third ventricles. The temporal horns are mild to moderately dilated measuring 8 mm. Fourth ventricle relatively normal. No acute infarct. No hemorrhage. No mass or extra-axial fluid collection. Bones/joints: No acute changes. Soft tissues: No significant abnormality noted. Vasculature: No acute abnormality noted. Sinuses: No layering fluid in the visualized portions of the paranasal sinuses. Mastoid air cells: No mastoid effusion. Orbits: No significant abnormality noted. IMPRESSION: 1. No acute abnormality. 2. Findings strongly suspicious gs for normal press such re hydrocephalus. ACT 112: Negative or not required by law. Electronically signed by Shanae Ramos 04-20-2024 4:45 PM ECG Data Attestation: I personally reviewed and interpreted this ECG as follows: Rate (beats per minute): 73 Rhythm: atrial fibrillation Findings: no ST depression, no ST elevation or no prolonged QT [facility] Narrative 1608: The patient was evaluated in room C6. A complete history and physical exam was performed Cardiac monitoring: An order was placed for continuous cardiac monitoring. The monitor shows a rate of 70 with atrial fibrilation rhythm interpreted by me 1800: Vital signs stable. Labs show white blood cell count of 12.4. VBG unremarkable. Sodium 124. Creatinine 1.8. Imaging shows possible normal pressure hydrocephalus. Patient not having seizure-like activity. No need for hypertonic saline. Patient be gently hydrated with normal saline. [facility] Impression & Plan Hyponatremia, COVID-19, Acute kidney injury superimposed on chronic kidney disease Discharge Plan Visit Data Chief Complaint: Flu Like Symptoms Stated Complaint: COVID, VOMITING, CONGESTION, WEAKNESS, COUGH, SOB ED Provider: Phil Belcher Discharge Problem: Hyponatremia, COVID-19, Acute kidney injury superimposed on chronic kidney disease Patient Disposition: Admitted As Inpatient Discharge Instructions Interventions: ED Discharge Assessment Last Done: 04/20/24 20:19
[2024-04-21] MEDS: PROMETHAZINE 6.25 MG/50.25 ML BAG IV PRN (04:56)
[2024-04-21] MEDS: ASPIRIN 81 MG ECTAB PO SCH (07:49)
[2024-04-21] MEDS: ROSUVASTATIN CALCIUM 10 MG TAB PO SCH (07:49)
[2024-04-21 08:13] LABS: Basophils # (auto) 0.02 K/uL (0.00-0.20); Basophils % (auto) 0.2 %; Eosinophils # (auto) 0.04 K/uL (0.00-0.50); Eosinophils % (auto) 0.4 %; Hematocrit (blood only) 36.2 % (42.0-52.0); Hemoglobin 12.7 g/dl (14.0-18.0); Immature Granulocytes # (auto) 0.09 K/uL (0.01-0.20); Immature Granulocytes % (auto) 0.9 %; Lymphocytes # (auto) 1.44 K/uL (1.20-3.40); Lymphocytes % (auto) 14.4 %; Mean Corpuscular Hemoglobin 31.7 pg (25.0-34.0); Mean Corpuscular Hgb Conc 35.1 g/dL (32.0-36.0); Mean Corpuscular Volume 90.3 fL (80.0-100.0); Mean Platelet Volume 9.6 fL (9.4-12.4); Neutrophils # (auto) 6.99 K/uL (1.40-6.50); Neutrophils % (auto) 70.1 %; Platelet Count 227 K/uL (130-400); RDW Coefficient of Variation 12.2 % (11.5-14.5); RDW Standard Deviation 40.3 fL (36.4-46.3); Red Blood Count 4.01 M/uL (4.70-6.10); White Blood Count 9.98 K/ul (4.8-10.8)
[2024-04-21 08:22] LABS: Albumin Level 3.2 gm/dl (3.4-5.0); BUN Creatinine Ratio 30.4 (10-20); Bilirubin,Total 0.9 mg/dl (0.2-1.0); Calcium 7.7 mg/dl (8.6-10.3); Creatinine Clr Calc Pharmacy 62.4 ml/min; Globulin 3.2 gm/dl (2.5-4.0); Potassium 4.6 mmol/L (3.5-5.1); Total Protein 6.4 gm/dl (6.0-8.3)
[2024-04-21 08:38] LABS: Estimated Average Glucose 189 mg/dl; Hemoglobin A1C 8.2 % (4.5-5.6)
--- NOTE | 2024-04-21 08:46 | Electrocardiogram Report ---
Test Reason : Blood Pressure : */* mmHG Vent. Rate : 73 BPM Atrial Rate : * BPM P-R Int : * ms QRS Dur : 70 ms QT Int : 372 ms P-R-T Axes : * 19 51 degrees QTcB Int : 409 ms Atrial fibrillation Low voltage QRS Abnormal ECG When compared with ECG of 23-Aug-2017 10:59, Borderline criteria for Inferior infarct are no longer Present Reconfirmed by Anthony Garcia ([id number]) on 04/21/2024 8:47:20 AM Referred By: REFERRED SELF Confirmed By: Anthony Garcia
--- NOTE | 2024-04-21 14:25 | Hospitalist Progress Note ---
Date of Service April 21, 2024 Assessment & Plan (1) COVID-19: (2) Hyponatremia: (3) Dehydration: (4) Generalized weakness: (5) Permanent atrial fibrillation: (6) CKD (chronic kidney disease), stage III: (7) Abnormal CT scan, head: (8) HTN (hypertension): (9) Dyslipidemia: Plan: Mr. Ramires is a 68 year old male with PMH DM II, HTN, dyslipidemia, permanent atrial fibrillation anticoagulated on Eliquis, CKD III presented to ER with c/o URI symptoms, cough, weakness x 5 days. Dx COVID-19 on 04/16/2024 Patient doing much better today with improved appetite. #Generalized weakness #Abnormal CT CT Head likely 2/2 normal aging, low suspicion for NPH no incontinence or other symptoms PT/OT #COVID-19 In ER afebrile, P: 76, R: 20, BP 92/61, 95% on room air WBC: 12. Lactate WNL, procalcitonin: 0.1. negative troponin. EKG atrial fibrillation, rate 73 per my interpretation Na: 124. BUN: 48, Cr: 1.8. Baseline Cr: 1.7 CXR: Stable scarring in the medial right lung base. No acute abnormality. Airborne isolation Will hold on dexamethasone and remdesivir as no hypoxia, no signs of covid pneumonia on cxr Supplemental oxygen as needed Xopenex nebs prn Guaifenesin eli Incentive spirometry, flutter valve continue CBC, BMP in am Fall precautions PT/OT eval #Anemia, likley chronic seems dilutional given decrease in all cell lines will add b12 and folate #Vitamin D deficiency #Hypocalcemia V D 25OH 11.4, started 50KU q7days Start calcium supplmentation #hyponatremia, likely iso poor intake #Dehydration In ER given 1 L NSS followed by 80 mL/hour Hold home lisinopril, HCTZ, spironolactone given dehydration and electrolyte abnormality resume as able #CKD III BUN: 48, Cr: 1.8. Baseline Cr: 1.7 per outpatient chart review Monitor renal functions, avoid nephrotoxic agents when possible #HTN Hold home lisinopril, HCTZ, spironolactone Continue home carvedilol with holding parameters #Afib Permanent afib anticoagulated on Eliquis Rate controlled Continue Eliquis and carvedilol #Abnormal CT head CT head: Generalized cortical atrophy and chronic small vessel ischemic change. There is moderate dilatation of the lateral and third ventricles. The temporal horns are mild to moderately dilated measuring 8 mm. Fourth ventricle relatively normal. No acute infarct. No hemorrhage. No mass or extra-axial fluid collection. Concern for normal pressure hydrocephalus Pt reports feeling off balance for couple of months Will need further workup #DM II A1c: 7.6 on 11/28/23, up to 8.2% Hold home oral glycemic agents NovoLog correction sliding scale per protocol DVT Prophylaxis On Eliquis Admit med tele Full Code as per discussion with pt Follows with Dr Leon for routine care Admission and Anticipated Discharge Date Admission Date: April 20, 2024 Subjective NAEO reports feeling much improved overall denies an acute concerns Physical Exam Constitutional: WD/WN, vitals as above Respiratory: regular on my exam Cardiovascular: RRR, no murmur, no edema Results & Data Results & Data Vital Signs (Past 12 Hours) Vital Signs Temp Pulse Pulse Pulse Resp BP Pulse Ox 04/21/24 14:16 81 04/21/24 10:44 36.6 C 61 20 133/79 95 04/21/24 07:48 36.4 C L 74 18 116/73 96 04/21/24 07:42 04/21/24 07:16 62 04/21/24 02:32 36.6 C 67 18 104/66 93 O2 Del Method 04/21/24 14:16 04/21/24 10:44 Room Air 04/21/24 07:48 Room Air 04/21/24 07:42 Room Air 04/21/24 07:16 04/21/24 02:32 Room Air Laboratory Results Short CBC 04/21/24 Range/Units 06:39 WBC 9.98 (4.8-10.8) K/ul Hgb 12.7 L (14.0-18.0) g/dl Hct 36.2 L (42.0-52.0) % Plt Count 227 (130-400) K/uL BMP 04/20/24 04/21/24 20:50 06:39 Sodium 125 L 127 L Potassium 4.9 4.6 Chloride 96 L 98 Carbon Dioxide 21 20 L BUN 45 H 41 H Creatinine 1.55 H 1.35 Glucose 166 H 108 H Calcium 7.8 L 7.7 L Liver Function 12/07/24 Range/Units 06:39 Total Bilirubin 0.9 (0.2-1.0) mg/dl AST 23 (13-39) U/L ALT 18 (7-52) U/L Alkaline Phosphatase 47 (34-104) U/L Albumin 3.2 L (3.4-5.0) gm/dl Urine 04/20/24 Range/Units 19:00 Urine Color Yellow Urine Appearance Clear (Clear) Urine pH 5.0 (4.5-7.5) Ur Specific [place] 1.015 (1.000-1.030) Urine Protein Negative (Negative) Urine Glucose (UA) Negative (Negative) Medications Administered Home Medications Medication Instructions Recorded Confirmed Last Taken lisinopril 20 1 tab PO QAM #0 tabs 08/23/17 04/20/24 04/20/24 mg-hydrochlorothiazide 25 mg tablet apixaban 5 mg tablet (Eliquis) 5 mg PO BID #0 tabs 09/16/17 04/20/24 04/20/24 aspirin 81 mg tablet,delayed 81 mg PO DAILY 04/20/24 04/20/24 Unknown release carvedilol 6.25 mg tablet 6.25 mg PO BID 04/20/24 04/20/24 Unknown glipizide 5 mg tablet, extended 5 mg PO DAILY 04/20/24 04/20/24 Unknown release 24 hr metformin 500 mg tablet 500 mg PO DAILY 04/20/24 04/20/24 Unknown rosuvastatin 10 mg tablet 10 mg PO DAILY 04/20/24 04/20/24 Unknown spironolactone 50 mg tablet 50 mg PO DAILY 04/20/24 04/20/24 Unknown Active Medications Generic Name Dose Route Start Last Admin Trade Name Freq PRN Reason Stop Dose Admin Apixaban 5 mg 04/20/24 21:00 04/21/24 07:49 Apixaban 5 Mg Tablet PO 05/20/24 20:59 5 mg BID ELI Administration Aspirin 81 mg 04/21/24 09:00 04/21/24 07:49 Aspirin 81 Mg Ectab PO 05/21/24 08:59 81 mg DAILY ELI Administration Carvedilol 6.25 mg 04/20/24 21:00 04/21/24 07:50 Carvedilol 6.25 Mg Tab PO 05/20/24 20:59 6.25 mg BID ELI Administration Guaifenesin 1,200 mg 04/20/24 21:00 04/21/24 07:49 Guaifenesin 600 Mg Tabcr PO 05/20/24 20:59 1,200 mg Q12 ELI Administration Promethazine HCl 6.25 mg in 50.25 mls @ 201 mls/hr 04/20/24 20:49 04/21/24 05:14 Phenergan IV 05/20/24 20:48 Infused Q6H PRN Infusion Nausea And Vomiting Insulin Aspart 0 units 04/20/24 21:00 04/21/24 17:31 Insulin Aspart Per Unit Charge SC 05/20/24 20:59 1 units ACHS ELI Administration Rosuvastatin Calcium 10 mg 04/21/24 09:00 04/21/24 07:49 Rosuvastatin Calcium 10 Mg Tab PO 05/21/24 08:59 10 mg DAILY ELI Administration
[2024-04-21] MEDS: ERGOCALCIFEROL 1250 MCG (50,000 UNITS) CAP PO SCH (18:29)
[2024-04-21] MEDS: CALCIUM CARBONATE 1,250 MG/5 ML UDC PO SCH (20:47)
[2024-04-21] MEDS: COUGH DROP (SUGAR FREE) LOZ 24 LOZ/1 BOX BUCCAL PRN (22:51)
[2024-04-22 07:12] LABS: Hematocrit (blood only) 39.4 % (42.0-52.0); Hemoglobin 13.6 g/dl (14.0-18.0); Mean Corpuscular Hemoglobin 31.2 pg (25.0-34.0); Mean Corpuscular Hgb Conc 34.5 g/dL (32.0-36.0); Mean Corpuscular Volume 90.4 fL (80.0-100.0); Platelet Count 270 K/uL (130-400); RDW Coefficient of Variation 12.3 % (11.5-14.5); RDW Standard Deviation 40.9 fL (36.4-46.3); Red Blood Count 4.36 M/uL (4.70-6.10); White Blood Count 9.07 K/ul (4.8-10.8)
[2024-04-22 07:26] LABS: Calcium 8.4 mg/dl (8.6-10.3); Creatinine Clr Calc Pharmacy 69.9 ml/min; Potassium 5.1 mmol/L (3.5-5.1)
[2024-04-22 07:51] LABS: Folate (Folic Acid),Ser orPlas 9.71 ng/ml (>5.38)
--- NOTE | 2024-04-22 09:27 | Hospitalist Progress Note ---
Date of Service April 22, 2024 Assessment & Plan (1) COVID-19: (2) Hyponatremia: (3) Dehydration: (4) Generalized weakness: (5) Permanent atrial fibrillation: (6) CKD (chronic kidney disease), stage III: (7) Abnormal CT scan, head: (8) HTN (hypertension): (9) Dyslipidemia: Plan: Mr. Ramires is a 68 year old male with PMH DM II, HTN, dyslipidemia, permanent atrial fibrillation anticoagulated on Eliquis, CKD III presented to ER with c/o URI symptoms, cough, weakness x 5 days. Dx COVID-19 on 04/16/2024 Patient doing much better today with improved appetite. Hyponatremia improving appropriately. #Generalized weakness #Abnormal CT CT Head likely 2/2 normal aging, low suspicion for NPH no incontinence or other symptoms PT/OT: plan for additional visit to determine if SNF possible Spoke with Dr. Hightower regarding ?NPH---he reports this is OP evaluation starting with referral to memory and cognition eval #COVID-19 In ER afebrile, P: 76, R: 20, BP 92/61, 95% on room air WBC: 12. Lactate WNL, procalcitonin: 0.1. negative troponin. EKG atrial fibr illation, rate 73 per my interpretation Na: 124. BUN: 48, Cr: 1.8. Baseline Cr: 1.7 CXR: Stable scarring in the medial right lung base. No acute abnormality. Airborne isolation Will hold on dexamethasone and remdesivir as no hypoxia, no signs of covid pneumonia on cxr Supplemental oxygen as needed Xopenex nebs prn Guaifenesin eli Incentive spirometry, flutter valve Fall precautions flonase #Anemia, likley chronic seems dilutional given decrease in all cell lines b12 wnl and folate wnl #Vitamin D deficiency #Hypocalcemia V D 25OH 11.4, started 50KU q7days Start calcium supplmentation #hyponatremia, likely iso poor intake #Dehydration In ER given 1 L NSS followed by 80 mL/hour Hold home lisinopril, HCTZ, spironolactone given dehydration and electrolyte abnormality resume as able #CKD III BUN: 48, Cr: 1.8. Baseline Cr: 1.7 per outpatient chart review Monitor renal functions, avoid nephrotoxic agents when possible #HTN Hold home lisinopril, HCTZ, spironolactone Continue home carvedilol with holding parameters #Afib Permanent afib anticoagulated on Eliquis Rate controlled Continue Eliquis and carvedilol #DM II A1c: 7.6 on 11/28/23, up to 8.2% Hold home oral glycemic agents NovoLog correction sliding scale per protocol DVT Prophylaxis On Eliquis Admit med tele Full Code as per discussion with pt Follows with Dr Leon for routine care Admission and Anticipated Discharge Date Admission Date: April 20, 2024 Subjective Reports feeling much improved this am Still with some postnasal drip like symptoms Denies any sob, chest pain or other acute concerns Physical Exam Constitutional: WD/WN, vitals as above Respiratory: normal respiratory effort, lungs clear to auscultation Cardiovascular: RRR, no murmur, no edema Gastrointestinal (Abdomen): normal bowel sounds, soft, nontender, no hepatosplenomegaly Results & Data Results & Data Vital Signs (Past 12 Hours) Vital Signs Temp Pulse Pulse Resp BP Pulse Ox O2 Del Method 04/22/24 07:41 36.5 C 68 16 108/69 94 Room Air 04/22/24 07:02 61 04/22/24 02:44 36.9 C 73 20 124/67 91 Room Air 04/22/24 00:50 78 04/21/24 23:45 36.7 C 66 20 99/56 L 93 Room Air Laboratory Results Short CBC 04/22/24 Range/Units 06:53 WBC 9.07 (4.8-10.8) K/ul Hgb 13.6 L (14.0-18.0) g/dl Hct 39.4 L (42.0-52.0) % Plt Count 270 (130-400) K/uL [facility] 04/22/24 06:53 Sodium 130 L Potassium 5.1 Chloride 101 Carbon Dioxide 22 BUN 30 H Creatinine 1.20 Glucose 120 H Calcium 8.4 L Medications Administered Home Medications Medication Instructions Recorded Confirmed Last Taken lisinopril 20 1 tab PO QAM #0 tabs 08/23/17 04/20/24 04/20/24 mg-hydrochlorothiazide 25 mg tablet apixaban 5 mg tablet (Eliquis) 5 mg PO BID #0 tabs 09/16/17 04/20/24 04/20/24 aspirin 81 mg tablet,delayed 81 mg PO DAILY 04/20/24 04/20/24 Unknown release carvedilol 6.25 mg tablet 6.25 mg PO BID 04/20/24 04/20/24 Unknown glipizide 5 mg tablet, extended 5 mg PO DAILY 04/20/24 04/20/24 Unknown release 24 hr metformin 500 mg tablet 500 mg PO DAILY 04/20/24 04/20/24 Unknown rosuvastatin 10 mg tablet 10 mg PO DAILY 04/20/24 04/20/24 Unknown spironolactone 50 mg tablet 50 mg PO DAILY 04/20/24 04/20/24 Unknown Active Medications Generic Name Dose Route Start Last Admin Trade Name Eyadq PRN Reason Stop Dose Admin Apixaban 5 mg 04/20/24 21:00 04/22/24 08:24 Apixaban 5 Mg Tablet PO 05/20/24 20:59 5 mg BID ELI Administration Aspirin 81 mg 04/21/24 09:00 04/22/24 08:23 Aspirin 81 Mg Ectab PO 05/21/24 08:59 81 mg DAILY ELI Administration Calcium Carbonate 1,250 mg 04/21/24 21:00 04/22/24 08:24 Calcium Carbonate 1,250 Mg/5 Ml Udc PO 05/21/24 20:59 1,250 mg BID ELI Administration Carvedilol 6.25 mg 04/20/24 21:00 04/22/24 08:23 Carvedilol 6.25 Mg Tab PO 05/20/24 20:59 6.25 mg BID ELI Administration Ergocalciferol 1,250 mcg 04/21/24 18:30 04/21/24 18:29 Ergocalciferol 1250 Mcg (50,000 Units) Cap PO 05/21/24 18:29 1,250 mcg Q7D ELI Administration Fluticasone Propionate 2 sprays 04/22/24 13:00 04/22/24 14:24 Fluticasone Propionate Na Spr 16 Gm Btl NA 05/22/24 12:59 2 sprays DAILY ELI Administration Guaifenesin 1,200 mg 04/20/24 21:00 04/22/24 08:23 Guaifenesin 600 Mg Tabcr PO 05/20/24 20:59 1,200 mg Q12 ELI Administration Promethazine HCl 6.25 mg in 50.25 mls @ 201 mls/hr 04/20/24 20:49 04/21/24 05:14 Phenergan IV 05/20/24 20:48 Infused Q6H PRN Infusion Nausea And Vomiting Insulin Aspart 0 units 04/20/24 21:00 04/22/24 12:30 Insulin Aspart Per Unit Charge SC 05/20/24 20:59 1 units ACHS ELI Administration Menthol 1 sowmya 04/21/24 22:36 04/21/24 22:51 Cough Drop (Sugar Free) Sowmya 24 Sowmya/1 Box BUCCAL 05/21/24 22:35 1 sowmya TID PRN Administration Sore Throat Rosuvastatin Calcium 10 mg 04/21/24 09:00 04/22/24 08:23 Rosuvastatin Calcium 10 Mg Tab PO 05/21/24 08:59 10 mg DAILY ELI Administration
[2024-04-22] MEDS: FLUTICASONE PROPIONATE NA SPR 16 GM BTL SCH (14:24)
[2024-04-22] MEDS: PSEUDOEPHEDRINE HCL 30 MG TAB PO STA (14:24)
[2024-04-23 06:43] LABS: Hematocrit (blood only) 39.2 % (42.0-52.0); Hemoglobin 13.8 g/dl (14.0-18.0); Mean Corpuscular Hemoglobin 31.8 pg (25.0-34.0); Mean Corpuscular Hgb Conc 35.2 g/dL (32.0-36.0); Mean Corpuscular Volume 90.3 fL (80.0-100.0); Mean Platelet Volume 8.9 fL (9.4-12.4); Platelet Count 256 K/uL (130-400); RDW Coefficient of Variation 12.2 % (11.5-14.5); RDW Standard Deviation 40.5 fL (36.4-46.3); Red Blood Count 4.34 M/uL (4.70-6.10); White Blood Count 8.72 K/ul (4.8-10.8)
[2024-04-23 07:00] LABS: BUN Creatinine Ratio 18.3 (10-20); Calcium 8.6 mg/dl (8.6-10.3); Creatinine Clr Calc Pharmacy 66.9 ml/min; Potassium 4.9 mmol/L (3.5-5.1)
--- NOTE | 2024-04-23 16:27 | Hospitalist Progress Note ---
Date of Service April 23, 2024 Assessment & Plan (1) COVID-19: (2) Hyponatremia: (3) Dehydration: (4) Generalized weakness: (5) Permanent atrial fibrillation: (6) CKD (chronic kidney disease), stage III: (7) Abnormal CT scan, head: (8) HTN (hypertension): (9) Dyslipidemia: Plan: Mr. Ramires is a 68 year old male with PMH DM II, HTN, dyslipidemia, permanent atrial fibrillation anticoagulated on Eliquis, CKD III presented to ER with c/o URI symptoms, cough, weakness x 5 days. Dx COVID-19 on 04/16/2024 Patient doing much better today with improved appetite. Hyponatremia improving appropriately. Patient continues to improve medically, now a question of possible SNF for rehab. #Generalized weakness #Abnormal CT CT Head likely 2/2 normal aging, low suspicion for NPH no incontinence or other symptoms PT/OT: plan for additional visit to determine if SNF possible Spoke with Dr. Hightower regarding ?NPH---he reports this is OP evaluation starting with referral to memory and cognition eval #COVID-19 In ER afebrile, P: 76, R: 20, BP 92/61, 95% on room air WBC: 12. Lactate WNL, procalcitonin: 0.1. negative troponin. EKG atrial fibrillation, rate 73 per my interpretation Na: 124. BUN: 48, Cr: 1.8. Baseline Cr: 1.7 CXR: Stable scarring in the medial right lung base. No acute abnormality. Airborne isolation Will hold on dexamethasone and remdesivir as no hypoxia, no signs of covid pneumonia on cxr Supplemental oxygen as needed Xopenex nebs prn Guaifenesin eli Incentive spirometry, flutter valve Fall precautions flonase #Anemia, likley chronic seems dilutional given decrease in all cell lines b12 wnl and folate wnl #Vitamin D deficiency #Hypocalcemia V D 25OH 11.4, started 50KU q7days Start calcium supplmentation #hyponatremia, likely iso poor intake #Dehydration In ER given 1 L NSS followed by 80 mL/hour Hold home lisinopril, HCTZ, spironolactone given dehydration and electrolyte abnormality resume as able #CKD III BUN: 48, Cr: 1.8. Baseline Cr: 1.7 per outpatient chart review Monitor renal functions, avoid nephrotoxic agents when possible #HTN Hold home lisinopril, HCTZ, spironolactone Continue home carvedilol with holding parameters #Afib Permanent afib anticoagulated on Eliquis Rate controlled Continue Eliquis and carvedilol #DM II A1c: 7.6 on 11/28/23, up to 8.2% Hold home oral glycemic agents NovoLog correction sliding scale per protocol DVT Prophylaxis On Eliquis Admit med tele Full Code as per discussion with pt Follows with Dr Leon for routine care Admission and Anticipated Discharge Date Admission Date: April 20, 2024 Subjective NAEO reports feeling much better but nervous about mobility at home Physical Exam Constitutional: WD/WN, vitals as above Respiratory: normal respiratory effort, lungs clear to auscultation Cardiovascular: RRR, no murmur, no edema Gastrointestinal (Abdomen): normal bowel sounds, soft, nontender, no hepatosplenomegaly Results & Data Results & Data Vital Signs (Past 12 Hours) Vital Signs Temp Pulse Pulse Resp BP Pulse Ox O2 Del Method 04/23/24 14:53 58 L 04/23/24 11:59 36.5 C 52 L 16 116/62 93 Room Air 04/23/24 09:00 Room Air 04/23/24 07:30 36.4 C L 61 16 110/71 97 Room Air 04/23/24 07:11 56 L Laboratory Results Short CBC 04/23/24 Range/Units 06:29 WBC 8.72 (4.8-10.8) K/ul Hgb 13.8 L (14.0-18.0) g/dl Hct 39.2 L (42.0-52.0) % Plt Count 256 (130-400) K/uL BMP 04/23/24 06:29 Sodium 131 L Potassium 4.9 Chloride 101 Carbon Dioxide 24 BUN 23 Creatinine 1.26 Glucose 111 H Calcium 8.6 Medications Administered Home Medications Medication Instructions Recorded Confirmed Last Taken lisinopril 20 1 tab PO QAM #0 tabs 08/23/17 04/20/24 04/20/24 mg-hydrochlorothiazide 25 mg tablet apixaban 5 mg tablet (Eliquis) 5 mg PO BID #0 tabs 09/16/17 04/20/24 04/20/24 aspirin 81 mg tablet,delayed 81 mg PO DAILY 04/20/24 04/20/24 Unknown release carvedilol 6.25 mg tablet 6.25 mg PO BID 04/20/24 04/20/24 Unknown glipizide 5 mg tablet, extended 5 mg PO DAILY 04/20/24 04/20/24 Unknown release 24 hr metformin 500 mg tablet 500 mg PO DAILY 04/20/24 04/20/24 Unknown rosuvastatin 10 mg tablet 10 mg PO DAILY 04/20/24 04/20/24 Unknown spironolactone 50 mg tablet 50 mg PO DAILY 04/20/24 04/20/24 Unknown Active Medications Generic Name Dose Route Start Last Admin Trade Name Eyadq PRN Reason Stop Dose Admin Apixaban 5 mg 04/20/24 21:00 04/23/24 08:58 Apixaban 5 Mg Tablet PO 05/20/24 20:59 5 mg BID ELI Administration Aspirin 81 mg 04/21/24 09:00 04/23/24 08:58 Aspirin 81 Mg Ectab PO 05/21/24 08:59 81 mg DAILY ELI Administration Calcium Carbonate 1,250 mg 04/21/24 21:00 04/23/24 08:58 Calcium Carbonate 1,250 Mg/5 Ml Udc PO 05/21/24 20:59 1,250 mg BID ELI Administration Carvedilol 6.25 mg 04/20/24 21:00 04/23/24 08:58 Carvedilol 6.25 Mg Tab PO 05/20/24 20:59 6.25 mg BID ELI Administration Ergocalciferol 1,250 mcg 04/21/24 18:30 04/21/24 18:29 Ergocalciferol 1250 Mcg (50,000 Units) Cap PO 05/21/24 18:29 1,250 mcg Q7D ELI Administration Fluticasone Propionate 2 sprays 04/22/24 13:00 04/23/24 08:58 Fluticasone Propionate Na Spr 16 Gm Btl NA 05/22/24 12:59 2 sprays DAILY ELI Administration Guaifenesin 1,200 mg 04/20/24 21:00 04/23/24 08:58 Guaifenesin 600 Mg Tabcr PO 05/20/24 20:59 1,200 mg Q12 ELI Administration Promethazine HCl 6.25 mg in 50.25 mls @ 201 mls/hr 04/20/24 20:49 04/21/24 05:14 Phenergan IV 05/20/24 20:48 Infused Q6H PRN Infusion Nausea And Vomiting Insulin Aspart 0 units 04/20/24 21:00 04/23/24 12:20 Insulin Aspart Per Unit Charge SC 05/20/24 20:59 2 units ACHS ELI Administration Menthol 1 sowmya 04/21/24 22:36 04/21/24 22:51 Cough Drop (Sugar Free) Sowmya 24 Sowmya/1 Box BUCCAL 05/21/24 22:35 1 sowmya TID PRN Administration Sore Throat Rosuvastatin Calcium 10 mg 04/21/24 09:00 04/23/24 08:58 Rosuvastatin Calcium 10 Mg Tab PO 05/21/24 08:59 10 mg DAILY ELI Administration
[2024-04-24 08:31] LABS: Hematocrit (blood only) 39.5 % (42.0-52.0); Hemoglobin 13.6 g/dl (14.0-18.0); Mean Corpuscular Hemoglobin 30.7 pg (25.0-34.0); Mean Corpuscular Hgb Conc 34.4 g/dL (32.0-36.0); Mean Corpuscular Volume 89.2 fL (80.0-100.0); Mean Platelet Volume 8.9 fL (9.4-12.4); Platelet Count 294 K/uL (130-400); RDW Coefficient of Variation 12.2 % (11.5-14.5); Red Blood Count 4.43 M/uL (4.70-6.10); White Blood Count 9.86 K/ul (4.8-10.8)
[2024-04-24 08:39] LABS: BUN Creatinine Ratio 18.1 (10-20); Creatinine Clr Calc Pharmacy 65.3 ml/min; Potassium 4.7 mmol/L (3.5-5.1)
--- NOTE | 2024-04-24 18:45 | Hospitalist Progress Note ---
Date of Service April 24, 2024 Assessment & Plan (1) COVID-19: (2) Hyponatremia: (3) Dehydration: (4) Generalized weakness: (5) Permanent atrial fibrillation: (6) CKD (chronic kidney disease), stage III: (7) Abnormal CT scan, head: (8) HTN (hypertension): (9) Dyslipidemia: Plan: Mr. Ramires is a 68 year old male with PMH DM II, HTN, dyslipidemia, permanent atrial fibrillation anticoagulated on Eliquis, CKD III presented to ER with c/o URI symptoms, cough, weakness x 5 days. Dx COVID-19 on 04/16/2024 Patient doing much better today with improved appetite. Hyponatremia improving appropriately. Patient continues to improve medically, now a question of possible SNF for rehab. No current changes to plan. #Generalized weakness *stable #Abnormal CT CT Head likely 2/2 normal aging, low suspicion for NPH no incontinence or other symptoms PT/OT: plan for additional visit to determine if SNF possible Spoke with Dr. Hightower regarding ?NPH---he reports this is OP evaluation starting with referral to memory and cognition eval #COVID-19 In ER afebrile, P: 76, R: 20, BP 92/61, 95% on room air WBC: 12. Lactate WNL, procalcitonin: 0.1. negative troponin. EKG atrial fibrillation, rate 73 per my interpretation Na: 124. BUN: 48, Cr: 1.8. Baseline Cr: 1.7 CXR: Stable scarring in the medial right lung base. No acute abnormality. Airborne isolation Will hold on dexamethasone and remdesivir as no hypoxia, no signs of covid pneumonia on cxr Supplemental oxygen as needed Xopenex nebs prn Guaifenesin eli Incentive spirometry, flutter valve Fall precautions flonase #Anemia, likley chronic seems dilutional given decrease in all cell lines b12 wnl and folate wnl #Vitamin D deficiency #Hypocalcemia V D 25OH 11.4, started 50KU q7days Start calcium supplementation #hyponatremia, likely iso poor intake #Dehydration In ER given 1 L NSS followed by 80 mL/hour Hold home lisinopril, HCTZ, spironolactone given dehydration and electrolyte abnormality resume as able #CKD III BUN: 48, Cr: 1.8. Baseline Cr: 1.7 per outpatient chart review Monitor renal functions, avoid nephrotoxic agents when possible #HTN Hold home lisinopril, HCTZ, spironolactone Continue home carvedilol with holding parameters #Afib Permanent afib anticoagulated on Eliquis Rate controlled Continue Eliquis and carvedilol #DM II A1c: 7.6 on 11/28/23, up to 8.2% Hold home oral glycemic agents NovoLog correction sliding scale per protocol DVT Prophylaxis On Eliquis Admit med tele: pending dispo to rehab Full Code as per discussion with pt Follows with Dr Leon for routine care Admission and Anticipated Discharge Date Admission Date: April 20, 2024 Subjective NAEO reports feeling excited and nervous for discharge to rehab Denies any new symptoms, reporting better strength than day before Physical Exam Constitutional: WD/WN, vitals as above Respiratory: normal respiratory effort, lungs clear to auscultation Cardiovascular: irregular Results & Data Results & Data Vital Signs (Past 12 Hours) Vital Signs Temp Pulse Pulse Resp BP Pulse Ox O2 Del Method 04/24/24 14:52 36.6 C 56 L 18 101/63 94 Room Air 04/24/24 14:40 56 L 04/24/24 11:25 36.3 C L 51 L 16 136/79 96 Room Air 04/24/24 10:22 Room Air 04/24/24 10:22 52 L 04/24/24 07:34 36.5 C 60 18 120/74 96 Room Air Laboratory Results Short CBC 04/24/24 Range/Units 07:25 WBC 9.86 (4.8-10.8) K/ul Hgb 13.6 L (14.0-18.0) g/dl Hct 39.5 L (42.0-52.0) % Plt Count 294 (130-400) K/uL BMP 04/24/24 07:25 Sodium 131 L Potassium 4.7 Chloride 98 Carbon Dioxide 25 BUN 23 Creatinine 1.27 Glucose 120 H Calcium 9.0 Medications Administered Home Medications Medication Instructions Recorded Confirmed Last Taken lisinopril 20 1 tab PO QAM #0 tabs 08/23/17 04/20/24 04/20/24 mg-hydrochlorothiazide 25 mg tablet apixaban 5 mg tablet (Eliquis) 5 mg PO BID #0 tabs 09/16/17 04/20/24 04/20/24 aspirin 81 mg tablet,delayed 81 mg PO DAILY 04/20/24 04/20/24 Unknown release carvedilol 6.25 mg tablet 6.25 mg PO BID 04/20/24 04/20/24 Unknown glipizide 5 mg tablet, extended 5 mg PO DAILY 04/20/24 04/20/24 Unknown release 24 hr metformin 500 mg tablet 500 mg PO DAILY 04/20/24 04/20/24 Unknown rosuvastatin 10 mg tablet 10 mg PO DAILY 04/20/24 04/20/24 Unknown spironolactone 50 mg tablet 50 mg PO DAILY 04/20/24 04/20/24 Unknown Active Medications Generic Name Dose Route Start Last Admin Trade Name Freq PRN Reason Stop Dose Admin Apixaban 5 mg 04/20/24 21:00 04/24/24 09:15 Apixaban 5 Mg Tablet PO 05/20/24 20:59 5 mg BID ELI Administration Aspirin 81 mg 04/21/24 09:00 04/24/24 09:15 Aspirin 81 Mg Ectab PO 05/21/24 08:59 81 mg DAILY ELI Administration Calcium Carbonate 1,250 mg 04/21/24 21:00 04/24/24 09:15 Calcium Carbonate 1,250 Mg/5 Ml Udc PO 05/21/24 20:59 1,250 mg BID ELI Administration Carvedilol 6.25 mg 04/20/24 21:00 04/24/24 09:15 Carvedilol 6.25 Mg Tab PO 05/20/24 20:59 6.25 mg BID ELI Administration Ergocalciferol 1,250 mcg 04/21/24 18:30 04/21/24 18:29 Ergocalciferol 1250 Mcg (50,000 Units) Cap PO 05/21/24 18:29 1,250 mcg Q7D ELI Administration Fluticasone Propionate 2 sprays 04/22/24 13:00 04/24/24 09:16 Fluticasone Propionate Na Spr 16 Gm Btl NA 05/22/24 12:59 2 sprays DAILY ELI Administration Guaifenesin 1,200 mg 04/20/24 21:00 04/24/24 09:15 Guaifenesin 600 Mg Tabcr PO 05/20/24 20:59 1,200 mg Q12 ELI Administration Promethazine HCl 6.25 mg in 50.25 mls @ 201 mls/hr 04/20/24 20:49 04/21/24 05:14 Phenergan IV 05/20/24 20:48 Infused Q6H PRN Infusion Nausea And Vomiting Insulin Aspart 0 units 04/20/24 21:00 04/24/24 18:01 Insulin Aspart Per Unit Charge SC 05/20/24 20:59 Not Given ACHS ELI Menthol 1 sowmya 04/21/24 22:36 04/21/24 22:51 Cough Drop (Sugar Free) Sowmya 24 Sowmya/1 Box BUCCAL 05/21/24 22:35 1 sowmya TID PRN Administration Sore Throat Rosuvastatin Calcium 10 mg 04/21/24 09:00 04/24/24 09:15 Rosuvastatin Calcium 10 Mg Tab PO 05/21/24 08:59 10 mg DAILY ELI Administration
[2024-04-25 06:47] LABS: BUN Creatinine Ratio 20.2 (10-20); Calcium 9.1 mg/dl (8.6-10.3); Potassium 4.6 mmol/L (3.5-5.1)
[2024-04-25 11:29] VITALS: RESP 18
--- NOTE | 2024-04-25 14:59 | Hospitalist Progress Note ---
Date of Service April 25, 2024 Assessment & Plan (1) COVID-19: (2) Hyponatremia: (3) Dehydration: (4) Generalized weakness: (5) Permanent atrial fibrillation: (6) CKD (chronic kidney disease), stage III: (7) Abnormal CT scan, head: (8) HTN (hypertension): (9) Dyslipidemia: Plan: Mr. Ramires is a 68 year old male with PMH DM II, HTN, dyslipidemia, permanent atrial fibrillation anticoagulated on Eliquis, CKD III presented to ER with c/o URI symptoms, cough, weakness x 5 days. Dx COVID-19 on 04/16/2024 Patient doing much better today with improved appetite. Hyponatremia improving appropriately. Patient continues to improve medically, now a question of possible SNF for rehab. No current changes to plan. #Generalized weakness *stable #Abnormal CT CT Head likely 2/2 normal aging, low suspicion for NPH no incontinence or other symptoms PT/OT: plan for additional visit to determine if SNF possible Spoke with Dr. Hightower regarding ?NPH---he reports this is OP evaluation starting with referral to memory and cognition eval #COVID-19 In ER afebrile, P: 76, R: 20, BP 92/61, 95% on room air WBC: 12. Lactate WNL, procalcitonin: 0.1. negative troponin. EKG atrial fibrillation, rate 73 per my interpretation Na: 124. BUN: 48, Cr: 1.8. Baseline Cr: 1.7 CXR: Stable scarring in the medial right lung base. No acute abnormality. Airborne isolation Will hold on dexamethasone and remdesivir as no hypoxia, no signs of covid pneumonia on cxr Supplemental oxygen as needed Xopenex nebs prn Guaifenesin eli Incentive spirometry, flutter valve Fall precautions flonase 04/25 Remains stable overall Still feeling easily tired, unsteady with ambulation Peer to peer evaluation performed with [facility] medical diagnostic radiographer Patient approved for [facility] facility stay #Anemia, likely chronic seems dilutional given decrease in all cell lines b12 wnl and folate wnl #Vitamin D deficiency #Hypocalcemia V D 25OH 11.4, started 50KU q7days Start calcium supplementation #hyponatremia, likely iso poor intake #Dehydration In ER given 1 L NSS followed by 80 mL/hour Hold home lisinopril, HCTZ, spironolactone given dehydration and electrolyte abnormality resume as able #CKD III BUN: 48, Cr: 1.8. Baseline Cr: 1.7 per outpatient chart review Monitor renal functions, avoid nephrotoxic agents when possible #HTN Hold home lisinopril, HCTZ, spironolactone Continue home carvedilol with holding parameters -- systolic BP still at 120s hold off on BP meds monitor closely #Afib Permanent afib anticoagulated on Eliquis Rate controlled Continue Eliquis and carvedilol #DM II A1c: 7.6 on 11/28/23, up to 8.2% Hold home oral glycemic agents NovoLog correction sliding scale per protocol DVT Prophylaxis On Eliquis Admit med tele: transfer to SNF when medically stable Full Code as per discussion with pt Follows with Dr Leon for routine care Admission and Anticipated Discharge Date Admission Date: April 20, 2024 Subjective Follow-up for COVID-19, weakness, etc. Seen resting in bedside chair, comfortable, not in distress States breathing continues to improve, still having some nasal congestion Denies chest pain, palpitations, dizziness Still having easy fatigability after walking short distance, feels unsteady as well No other new symptoms Review of Systems Review of Systems: all noted and negative except for above Physical Exam Physical Exam: General- oriented x 3, not in distress, speaks in sentences with no effort or accessory muscle use Eyes- anicteric Neck- no JVD Lungs- clear breath sounds bilaterally, no rales/wheezes Heart- normal rate, regular rhythm; no murmurs Abdomen- normal bowel sounds, nondistended, soft, No tenderness Extremities- no pretibial edema, no calf tenderness Neuro- alert, oriented x 3; no gross focal neurologic deficits Skin- warm & dry Results & Data Results & Data Vital Signs (Past 12 Hours) Vital Signs Temp Pulse Pulse Resp BP Pulse Ox O2 Del Method 04/25/24 13:06 58 L 04/25/24 11:28 36.5 C 54 L 18 121/79 95 Room Air 04/25/24 09:49 Room Air 04/25/24 07:27 36.7 C 54 L 16 116/77 96 Room Air 04/25/24 06:14 56 L 04/25/24 03:03 36.4 C L 60 18 109/70 94 Room Air all noted and reviewed including below
--- NOTE | 2024-04-26 08:21 | Discharge Summary ---
Date of Service April 26, 2024 Admission HPI Per Admitting Provider Patient is 68 year old male with PMH DM II, HTN, dyslipidemia, permanent atrial fibrillation anticoagulated on Eliquis, CKD III presented to ER with c/o cough, weakness x 5 days. Patient reports sore throat, rhinorrhea, nasal congestion, productive cough, generalized weakness started 5 days ago. Was seen [facility] on 04/16/2024 for URI symptoms and diagnosed with COVID-19, did not have hypoxia at that time and patient had denied paxlovid. He has been taking Coricidin at home. Reports sore throat improved, nasal congestion seems to be decreasing, still with productive yellow cough. Reports progressive generalized weakness and feeling weak with walking and "wiped out". Reports some SOB with exertion. Denies CP or palpitations. States for past 2 months has been more off balance. Reports had a fall approximately one month ago. Reports decreased appetite and decreased oral intake. Denies vomiting or diarrhea. Denies known ill contacts. Denies known prior COVID-19 infection in past. States had initial COVID-19 vaccinations but no boosters recently. Denies fever/chills, hemoptysis, dizziness, syncope, vision changes, neck pain, CP, abdominal pain, paresthesias, extremity edema, rashes, urinary symptoms. Per outpatient cardiology note on 02/22/24 patient carvedilol decreased to 6.25mg BID. Admission Exam Per Admitting Provider General: no distress, obese Head: normocephalic, atraumatic Eyes: conjunctiva non-injected, anicteric ENT: normal inspection external ears, nose, mucous membranes dry Neck: supple, trachea midline Lungs: no respiratory distress, 95% on RA, +coarse breath sounds without rales noted CV: irregularly irregular, rate 72, no pretibial edema Abd: normal BS, soft, non-tender Ext: no cyanosis, no calf tenderness Neuro: A&O x 3, no focal deficits noted, normal affect Skin: warm, dry Principal Diagnosis covid-19/weakness Discharge Exam Neuro: AAOx4, PERRLA, no aphagia, memory changes, CNII-XII grossly intact HEENT: head normocephalic, moist mucus membranes CV: S1/S2, (-) M/G/R, (-) edema, cap refill < 3 seconds Resp: Lungs decreased in all ramos. On RA GI: Abdomen S/NT/ND, Ax4 bowel sounds, (-) CVA tenderness Musculoskeletal: 5/5 B/L UE strength, 5/5 B/L LE strength. No gait disturbance Skin: (-) rashes , (-) erythema. Psych: euthymic mood Discharge Data Allergies Allergy/AdvReac Type Severity Reaction Status Date / Time No Known Allergies Allergy Unknown Unverified 09/16/17 07:31 Consultations 04/20/24 17:56 ED Decision to Admit Stat Ordered Studies EXAM: Radiograph of the Chest 1 View INDICATION: Sepsis. COVID. TECHNIQUE: Frontal view of the chest. COMPARISON: 04/16/2024 FINDINGS: Lungs and pleural spaces: Stable scarring in the medial right lung base. No consolidation or pulmonary edema. No pleural effusion or pneumothorax. Heart: Shape and configuration within normal limits allowing for technique. Mediastinum: Normal contour. Bones/joints: Degenerative changes noted throughout the spine. No acute osseous abnormality seen. Soft tissues: No abnormality noted. No radiopaque foreign body noted. Upper abdomen: No abnormality noted. IMPRESSION: Stable scarring in the medial right lung base. No acute abnormality. ACT 112: Negative or not required by law. Electronically signed by Shanae Ramos 04-20-2024 4:40 PM EXAM: CT Head Without Intravenous Contrast INDICATION: COVID-positive. Weakness. TECHNIQUE: Axial computed tomography images of the head/brain without intravenous contrast. Sagittal and/or coronal reformats are provided. Sagittal and coronal reformatted images were created and reviewed. This CT exam was performed using one or more of the following dose reduction techniques: automated exposure control, adjustment of the mA and/or kV according to patient size, and/or use of iterative reconstruction technique. COMPARISON: There is dense calcification of the intracranial right vertebral artery. FINDINGS: Limitations: None. Brain and extra-axial spaces: Generalized cortical atrophy and chronic small vessel ischemic change. There is moderate dilatation of the lateral and third ventricles. The temporal horns are mild to moderately dilated measuring 8 mm. Fourth ventricle relatively normal. No acute infarct. No hemorrhage. No mass or extra-axial fluid collection. Bones/joints: No acute changes. Soft tissues: No significant abnormality noted. Vasculature: No acute abnormality noted. Sinuses: No layering fluid in the visualized portions of the paranasal sinuses. Mastoid air cells: No mastoid effusion. Orbits: No significant abnormality noted. IMPRESSION: 1. No acute abnormality. 2. Findings strongly suspicious gs for normal press such re hydrocephalus. ACT 112: Negative or not required by law. Electronically signed by Shanae Ramos 04-20-2024 4:45 PM Hospital Course (1) COVID-19: (2) Hyponatremia: (3) Dehydration: (4) Generalized weakness: (5) Permanent atrial fibrillation: (6) CKD (chronic kidney disease), stage III: (7) Abnormal CT scan, head: (8) HTN (hypertension): (9) Dyslipidemia: Mr. Ramires is a 68 year old male with PMH DM II, HTN, dyslipidemia, permanent atrial fibrillation anticoagulated on Eliquis, CKD III presented to ER with c/o URI symptoms, cough, weakness x 5 days. Dx COVID-19 on 04/16/2024. He underwent a head CT that was negative. In the ED he was afebrile, without tachycardia or hypoxia. His lactate and procalcitonin were normal as well wtih a negative troponin. His ECG revealed AF which is known to him. He was stable and did not receive Remdesivir or dexamathasone given that he was not experiencing hypoxia and did not have any signs of covid pneumonia on cxr. He was supported conservatively with Xopenex nebs, Guaifenesin, Flonase, and incentive spirometry and flutter valve use. Patient continues to improve medically and is ready to be discharged to a correction facility for some rehabilitation prior to returning home as he lives alone and was uncomfortable returning home without support. He was diagnosed with hyponatremia serum level 126 which has improved to 132. His vitamin B12 and Folate were normal. He was noted to have Vitamin D deficiency and was started on Vitamin D 50KU every 7 days and calcium supplementation was started as well. Given his hyponatremia which is likely secondary to poor intake and dehydration we have decided to hold the following medications: Lisinopril/HCTZ and Spirinolactone. Should his BP become elevated, we would recommend restarting Lisinopril 20 mg daily and not continuing the combination therapy. Continue his home carvedilol. Given the patients MIKE, hold NSAIDs, encourage fluid intake and avoid nephrotoxic agents and repeat PRP in 2-3 days to monitor kidney function. Baseline kidney function as an outpatient ranges 1.6-1.7 over past few years. Please do not hesitate to reach out with any questions. Total Time Total Time Spent Total Time Spent (In Minutes): I spent a total of 59 minutes coordinating, documenting, and providing care for this patient excluding time spent in the performance of separately billed services. All of the aforementioned completed while collaborating with the assigned attending physician for a full treatment plan. Please see their addendum for further details. Discharge Plan Discharge Items Patient Disposition: Transfer [facility]irement Fac Reason For Visit: COVID-19, WEAKNESS Discharge Diagnosis: Covid-19; generalized weakness Condition on Discharge: Good Activity: Per Instructions section Non-emergency contact: Primary Care Provider Call non-emergency contact if: you have any medication questions, your symptoms worsen and your temperature is above 101 Follow-up/Referrals: Saray Leon, [Primary Care Provider] - Diet: Heart Healthy Addtl Attending Provider Instructions: Mr. Ramires - You were admitted to the [facility] on 04/20/24 with weakness. You tested positive for COVID-19 with a test called Biofire. You were treated with supportive treatment and did not require oxygen support based on review of your chest xray. You were treated with Xopenex nebulizers and flonase, along with using incentive spirometer (a handheld device to help improve lung function) and a flutter valve to help clear secretions that you were having. Some of your blood work indicated that you had some hyponatremia (low sodium levels in your blood) which was likely secondary to you being dehydrated from your illness. You take some blood pressure medications at home that held while you were in the hospital and will continue to hold when you leave. This will be communicated with the correction facilities provide of which ones to consider restarting. Your hyponatremia will be monitored at [facility]. MEDICATION CHANGES: Hold Lisinopril/HCTZ. Should your blood pressure increase, we will communicate with your treating provider at [facility] about just starting the Lisinopril Continue taking Coreg Hold your Spironolactone for now. This will be discussed with [facility] as well. SUMMARY OF TEST RESULTS: You underwent a head CT on 04/20 with the following results: 1. No acute abnormality. 2. Findings strongly suspicious for normal press such re hydrocephalus. You had a chest x-ray performed on 04/20 with the following results: Stable sc arring in the medial right lung base. No acute abnormality. PENDING TEST RESULTS: Recheck blood work will be done in a few days to ensure your kidney function and electrolytes are stable. PRP in 2-3 days given IMKE to ensure it is not worsening. RECOMMENDATIONS FOR FOLLOW-UP: You will be discharged from the hospital and will go to [facility] a correction facility in order for you to continue with physical therapy and grow stronger with a goal to return home. OTHER INSTRUCTIONS: Seek medical attention if you have: * temperature above 101 * chest pain or trouble breathing * abdominal pain, nausea, vomiting * diarrhea, dark stools or bloody stools * any unanswered questions or concerns Call 911 if symptoms are severe. Please take good care of yourself. It has been a pleasure taking care of you. Please take care of yourself. If you have any questions regarding your recent hospitalization please contact [facility] and request Aria Elaine @ [phone]. Pending Studies at Discharge: No Stand-Alone Forms: My [facility] Skilled Items Patient informed of condition?: Yes DNR: No Discharge Level of Care: Skilled Communicable Disease: Yes Discharge Prognosis: Stable Lines: None Urinary Catheter: No Medications and DC Order Prescriptions: New fluticasone propionate 50 mcg/actuation [place],Suspension 2 spray NA DAILY Qty: 16 0RF guaifenesin [Mucinex] 600 mg Tablet Extended Release 12hr 1,200 mg PO Q12 Qty: 10 0RF Continued Eliquis 5 mg Tablet 5 mg PO BID Qty: 0 metformin 500 mg tablet 500 mg PO DAILY carvedilol 6.25 mg tablet 6.25 mg PO BID glipizide 5 mg tablet extended release 24hr 5 mg PO DAILY rosuvastatin 10 mg tablet 10 mg PO DAILY aspirin 81 mg Tablet,Delayed Release (Dr/Ec) 81 mg PO DAILY Discontinued lisinopril-hydrochlorothiazide 20-25 mg Tablet 1 tab PO QAM Qty: 0 spironolactone 50 mg tablet 50 mg PO DAILY Discharge Orders: Discharge Order (Routine); Ordered 04/26/24 Ordered By: Angy Powers/Other Patient Handouts: Managing Type 2 Diabetes Admission Data Admit Date/Time: 04/20/24 19:02 Attending Provider: Romel Kwan Admit Provider: Roberto Pearce Primary Care Provider: Saray Leon Other Providers: [facility]; Mikaela Bonilla at [place] Other Interventions: Discharge Summary Assessment (RN) Last Done: 04/26/24 12:50 Supervising Physician Co-Signing Physician Notes delayed entry date of service noted above Attending Addendum: Case reviewed with the advanced practitioner. I have personally performed a history and physical examination on the patient. I have reviewed the advanced practitioner's documentation on the date of service referenced in note, and I agree with, and take responsibility for the plan of care. please refer to her notes for full details patient seen and examined, records reviewed by myself as well Romel Kwan MD
[2024-04-26 11:42] VITALS: BP 132/83; TEMP 97.5; O2SAT 95
[2024-04-26 12:51] VITALS: PULSE 67
[2024-04-26 12:56] LABS: BUN Creatinine Ratio 14.6 (10-20); Calcium 9.4 mg/dl (8.6-10.3); Creatinine Clr Calc Pharmacy 52.8 ml/min; Potassium 4.7 mmol/L (3.5-5.1)
== END 2024-04-26 14:01 | DRG 178 ==
LOC: ED 15:28 → SUATTDRO 19:02 → 2W 19:02